=== PATIENT | female | born 1980 ===

== ENCOUNTER 2020-02-21 13:48 | Outpatient (REF) | payer OTHER, SELFPAY | END 2020-02-21 13:49 | disposition home or self-care (01) | LOC: HO.LAB 13:48 | PROVIDERS: PCP Internal Medicine; Visit Provider Internal Medicine | DX: Z20.828 Contact with and (suspected) exposure to other viral communicable diseases (principal) | CPT/HCPCS: C9803; U0003 ==

== ENCOUNTER 2022-09-10 07:46 | Outpatient (REF) | payer OTHER, SELFPAY ==
--- NOTE | ~2022-09-10 | XR_ITS ---
EXAM: XR KNEE, RIGHT XR KNEES, BILATERAL STANDING XR KNEE, LEFT CLINICAL INDICATION: Bilateral knee pain. COMPARISON: 06/01/2017 left knee, 11/05/2013. TECHNIQUE: AP and lateral views of the knees. Lateral and sunrise views of bilateral knees. FINDINGS: Right Knee: Moderate joint effusion. Progression of degenerative changes with moderate medial joint space narrowing and medial marginal osteophytes. Tiny lateral and posterior patellar osteophytes. Small ossicle at the posterior-superior, lateral aspect of the patella was not visualized on the prior exam. Left Knee: Joint effusion. Progression of mild degenerative changes with tiny tricompartmental osteophytes and mild medial joint space narrowing. Multiple soft tissue calcifications, most notable lateral to the knee joint and medial to the medial femoral condyle were not previously identified. XR/XR knee RT 2V IMPRESSION: 1. Progression of ryhmmnui-ls-xsdxkt degenerative changes right knee as detailed above. 2. Progression of mild degenerative changes left knee. 3. Bilateral soft tissue calcifications as detailed above, not previously visualized.
--- NOTE | ~2022-09-10 | XR_ITS ---
EXAM: XR KNEE, RIGHT XR KNEES, BILATERAL STANDING XR KNEE, LEFT CLINICAL INDICATION: Bilateral knee pain. COMPARISON: 06/01/2017 left knee, 11/05/2013. TECHNIQUE: AP and lateral views of the knees. Lateral and sunrise views of bilateral knees. FINDINGS: Right Knee: Moderate joint effusion. Progression of degenerative changes with moderate medial joint space narrowing and medial marginal osteophytes. Tiny lateral and posterior patellar osteophytes. Small ossicle at the posterior-superior, lateral aspect of the patella was not visualized on the prior exam. Left Knee: Joint effusion. Progression of mild degenerative changes with tiny tricompartmental osteophytes and mild medial joint space narrowing. Multiple soft tissue calcifications, most notable lateral to the knee joint and medial to the medial femoral condyle were not previously identified. XR/XR knee standing BI IMPRESSION: 1. Progression of wlysrnrp-jp-amqxfc degenerative changes right knee as detailed above. 2. Progression of mild degenerative changes left knee. 3. Bilateral soft tissue calcifications as detailed above, not previously visualized.
--- NOTE | ~2022-09-10 | XR_ITS ---
EXAM: XR KNEE, RIGHT XR KNEES, BILATERAL STANDING XR KNEE, LEFT CLINICAL INDICATION: Bilateral knee pain. COMPARISON: 06/01/2017 left knee, 11/05/2013. TECHNIQUE: AP and lateral views of the knees. Lateral and sunrise views of bilateral knees. FINDINGS: Right Knee: Moderate joint effusion. Progression of degenerative changes with moderate medial joint space narrowing and medial marginal osteophytes. Tiny lateral and posterior patellar osteophytes. Small ossicle at the posterior-superior, lateral aspect of the patella was not visualized on the prior exam. Left Knee: Joint effusion. Progression of mild degenerative changes with tiny tricompartmental osteophytes and mild medial joint space narrowing. Multiple soft tissue calcifications, most notable lateral to the knee joint and medial to the medial femoral condyle were not previously identified. XR/XR knee LT 2V IMPRESSION: 1. Progression of vqwxdhtf-ov-lmdyfi degenerative changes right knee as detailed above. 2. Progression of mild degenerative changes left knee. 3. Bilateral soft tissue calcifications as detailed above, not previously visualized.
== END 2022-09-10 07:47 | disposition home or self-care (01) ==
LOC: HO.HOSX 07:46
PROVIDERS: Visit Provider Physician Assistant
DX: M17.0 Bilateral primary osteoarthritis of knee (principal)
CPT/HCPCS: 73560; 73565; 99202

== ENCOUNTER 2022-10-25 08:14 | Outpatient (AMB) | payer OTHER, SELFPAY ==
[2022-10-25 08:26] VITALS: BMI 39.6
--- NOTE | 2022-10-25 08:26 | A.OFFVIS_ITS ---
Intake Vital Signs 10/25/22 08:26 Height 4 ft 11 in Weight 196 lb BMI 39.6 Intake Visit Reasons: OV - B/L Euflexxa Gel Injections #1 Intake Note: Sanjuana 41 yr old female presents today for bilateral knee gel injection. (euflexxa) Allergies Penicillins Allergy (Mild, Verified 10/25/22 08:32) RASH penicillin V Allergy (Unknown, Verified 10/25/22 08:32) rash HPI OV - B/L Euflexxa Gel Injections #1 HPI Details 41-year-old female who returns to the office today for bilateral Euflexxa gel injection #1. 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 Cognitive needs: Yes Hearing needs: No Vision needs: No Review of Systems Const All systems reviewed & are unremarkable except as noted in HPI and below Physical Exam Vital Signs: BMI result Body Mass Index 39.6 Const General: cooperative, healthy appearing, comfortable, no acute distress, well developed and alert Orientation/consciousness: patient oriented x3 HEENT Head: Yes normal to inspection, Yes normocephalic and Yes atraumatic Eyes General: appearance normal, both eyes and all related structures Resp Effort & Inspection: normal respiratory effort and able to speak in complete sentences Cardio Rate: regular rate Peripheral pulses: Peripheral pulses 2+ throughout GI Palpation (GI): Soft to palpation Skin Lesions: no lesions Rashes: no rashes Neuro General: patient oriented x3 Extrem Other: Bilateral knee skin intact, no erythema or joint effusion. Tenderness along the medial and lateral joint line. Full ROM with crepitus. Negative Vanita?s. No ligamentous laxity. NVI. Office Procedures Joint Injection/Drain Joint Injection/Drain Details: Hyaluronate Sodium [Euflexxa] ? 20 mg INTRAARTIC .STK-MED ONE Primary Site: right knee Secondary Site: left knee Prep: site was prepped using aseptic technique, ethochloride spray was applied and injection warnings given Injected: in the joint Approach Used: anterolateral Procedure: The patient tolerated the procedure well Coding 84569 - Glenohumeral/Tronchanteric Bursa/Intraarticular Procedure code (CPT) selection complete Results Reviewed Results Reviewed: 10/25/22 08:24 Hyaluronate Sodium [Euflexxa] 20 mg INTRAARTIC .STK-MED ONE Assessment & Plan Assessment & Plan (1) Osteoarthritis of knees, bilateral: Code(s): M17.0 - Bilateral primary osteoarthritis of knee Plan We discussed options today which include Euflexxa gel injection. They did consent to move forward with the bilateral knees Euflexxa gel injection #1, which was tolerated well. I recommended rest, ice and elevation and OTC anti-inflammatories PRN for discomfort. If symptoms persist or worsens, patient will contact the office, otherwise she will return in 1 week for Euflexxa gel injection #2. Patient Instructions: Scribed for Analy Stevenson PA-C, by Derek Curiel medical claims examiner, on 10/25/2022 at 8:30 AM EST. I, Analy Stevenson PA-C, have personally reviewed and agree with the information entered by the scribe. Coding Level of Care Code Procedure Only Diagnoses Osteoarthritis of knees, bilateral M17.0 CPT Codes Coding - Joint 7: 35588 - Glenohumeral/Tronchanteric Bursa/Intraarticular ([id number])
== END 2022-10-25 08:57 | disposition home or self-care (01) ==
PROVIDERS: PCP Internal Medicine; Visit Provider Physician Assistant
DX: M17.0 Bilateral primary osteoarthritis of knee (principal)
CPT/HCPCS: 20610

== ENCOUNTER → 2022-10-25 08:14 | Outpatient (BNVA) | payer OTHER, SELFPAY | PROVIDERS: PCP Internal Medicine; Visit Provider Physician Assistant ==

== ENCOUNTER 2022-10-25 08:53 | Emergency (ER) | payer OTHER, SELFPAY ==
--- NOTE | ~2022-10-25 | XR_ITS ---
EXAMINATION: XR ANKLE, RIGHT CLINICAL INFORMATION: Right ankle pain status post fall. COMPARISON: None available. TECHNIQUE: AP, lateral, and mortise views of the right ankle. FINDINGS: The ankle joint and mortise are intact. There is no acute fracture or dislocation. The tarsal bones are normally aligned. There is a small plantar calcaneal spur. The soft tissues are unremarkable. XR/XR ankle RT min 3V IMPRESSION: 1. No acute fracture. 2. Small degenerative plantar calcaneal spur.
--- NOTE | ~2022-10-25 | XR_ITS ---
EXAMINATION: XR THORACIC SPINE CLINICAL INFORMATION: Back pain status post fall down stairs. COMPARISON: None available. TECHNIQUE: 3 views of the thoracic spine were obtained. FINDINGS: There is no fracture or bone destruction seen and the vertebral alignment is normal. There is no disc space narrowing. There is no abnormality of the paraspinal soft tissues. Surgical clips overlie the right upper quadrant of the abdomen. XR/XR thoracic spine 3V IMPRESSION: Unremarkable thoracic spine.
--- NOTE | ~2022-10-25 | CT_ITS ---
EXAMINATION: CT CERVICAL SPINE WITHOUT CONTRAST CLINICAL INFORMATION: Status post fall down stairs with neck pain. COMPARISON: None available. TECHNIQUE: Multiple axial images of the cervical spine were obtained without the demonstration of intravenous contrast. Coronal and sagittal reformatted images were obtained. This CT examination was performed using dose optimization techniques as appropriate, variously including the following: *Automated exposure control *Adjustment of mA and/or kV according to patient size (this includes techniques or standardized protocols for targeted exams where dose is matched to indication/reason for exam; i.e. extremities or head) *Use of iterative reconstruction technique DLP: 605.42 mGy-cm FINDINGS: There is mild reversal the normal cervical lordosis with normal spinal alignment. Mild degenerative disc disease is seen at C6-C7 with disc space narrowing and marginal osteophyte formation. Small posterior disc osteophyte complex at C4-C5 causing mild spinal canal narrowing. The neural foramina are patent. The facet joints are unremarkable. The odontoid process is intact. The spinous and transverse processes are intact. The cervical soft tissues are unremarkable. Mildly prominent cervical lymph nodes are seen bilaterally without pathologic enlargement. The cervical spine is unremarkable. CT/CT cervical spine wo IV con IMPRESSION: 1. Mild reversal the normal cervical lordosis may be secondary to positioning and/or muscle spasm. 2. Mild degenerative changes without acute abnormality. 3. Cervical lymph nodes are mildly enlarged without pathologic enlargement. These could be baseline for the patient or reactive. Correlate with physical exam and patient history.
--- NOTE | ~2022-10-25 | CT_ITS ---
EXAMINATION: CT HEAD WITHOUT CONTRAST CLINICAL INFORMATION: Head trauma, loss of consciousness, rule out intracranial abnormality. COMPARISON: Head CT scan dated 04/28/2016. TECHNIQUE: Contiguous axial imaging was performed from the skull base to vertex without intravenous administration of contrast. Coronal and sagittal reformatted images were obtained. This CT examination was performed using dose optimization techniques as appropriate, variously including the following: *Automated exposure control *Adjustment of mA and/or kV according to patient size (this includes techniques or standardized protocols for targeted exams where dose is matched to indication/reason for exam; i.e. extremities or head) *Use of iterative reconstruction technique DLP: 605.42 mGy-cm FINDINGS: The cortical sulci are normal. The lateral ventricles are symmetrical. The third and fourth ventricles are in their normal midline position. The basilar and prepontine cisterns are unremarkable. There is no acute intra or extracerebral abnormality. There is no mass effect or midline shift. Sections through the bony calvarium are unremarkable. The paranasal sinuses are clear. The bony orbits and orbital contents are unremarkable. CT/CT head/brain wo IV con IMPRESSION: No acute intracranial pathology.
--- NOTE | ~2022-10-25 | XR_ITS ---
EXAMINATION: XR FOOT, RIGHT CLINICAL INFORMATION: Right foot pain status post fall. COMPARISON: None available. TECHNIQUE: AP, lateral, and oblique views of the right foot. An indicator arrow points to the second digit as well as the calcaneus. FINDINGS: There is no acute fracture or dislocation. The joint spaces are unremarkable the tarsal bones are normally aligned. There is a small plantar calcaneal spur. The soft tissues are unremarkable. XR/XR foot RT min 3V IMPRESSION: 1. No acute fracture. 2. Small degenerative plantar calcaneal spur.
[2022-10-25 08:57] VITALS: BP 146/99; PULSE 92; RESP 16; TEMP 36.1; O2SAT 95; BMI 39.6
--- NOTE | 2022-10-25 09:09 | ED.FALL ---
HPI - Fall General Chief Complaint: Head Injury Stated Complaint: Fall 10/23/ foot inj Time Seen by Provider: 10/25/22 09:06 Source: patient, RN notes reviewed and old records reviewed Mode of arrival: ambulatory History of Present Illness HPI Narrative: 41-year-old female with past medical history of asthma, GERD, gastroparesis, presenting to the ED complaining of right ankle/foot, headache, neck and back pain s/p mechanical trip and fall down 5 stairs 3 days ago. Patient states she was walking up the stairs when tripped and fell backwards landing on head, + LOC. denies taking anticoagulation, instance was witness, denies any seizure-like activity, however does report urinary incontinence after incident, denies tongue biting. Denies vision loss, numbness/tingling, weakness, CP/SOB, abdominal pain MD complaint: fall Related Data Home Medications Medication Instructions Recorded Confirmed nebulizers 04/17/21 08/27/21 Previous Rx's Medication Instructions Recorded albuterol sulfate 2.5 mg/3 mL 2.5 mg (3 mL) inhalation Q4-6H PRN 04/17/21 (0.083 %) solution for nebulization bronchospasm #90 mL ondansetron HCl 4 mg tablet 4 mg PO Q6H #90 tabs 05/25/21 diclofenac sodium 1 % topical gel 2 g topical QID PRN pain #100 grams 08/27/21 (Arthritis Pain (diclofenac)) pantoprazole 40 mg tablet,delayed 40 mg PO DAILY 30 days #30 tabs 08/27/21 release (Protonix) cyclobenzaprine 5 mg tablet 5 mg PO TID PRN muscle spasm #20 10/16/21 tabs ibuprofen 600 mg tablet 600 mg PO Q8H PRN pain #30 tabs 10/16/21 celecoxib 200 mg capsule (Celebrex) 200 mg PO BID 30 days #60 caps 09/10/22 acetaminophen 500 mg tablet 500 mg PO Q6H PRN fever or pain 10/25/22 (Tylenol Extra Strength) #14 tabs cyclobenzaprine 5 mg tablet 5 mg PO Q8H PRN pain (scale score 10/25/22 7-10) 5 days #14 tabs lidocaine 5 % topical patch 1 patch topical DAILY PRN pain #30 10/25/22 (Lidoderm) ea naproxen 500 mg tablet 500 mg PO BID PRN pain 10 days #20 10/25/22 tabs Allergies Allergy/AdvReac Type Severity Reaction Status Date / Time Penicillins Allergy Mild RASH Verified 10/25/22 08:32 penicillin V Allergy Unknown rash Verified 10/25/22 08:32 Review of Systems Review of Systems: Constitutional: No Fever, No Chills, No Fatigue, No Malaise ENT/Mouth: No Ear Pain, No Nasal Congestion,No sore throat, No Rhinorrhea, No Swallowing Difficulty Eyes: No Eye Pain, No Swelling, No Redness, No Vision Changes Cardiovascular: No Chest Pain, No SOB, No Edema, No Palpitations Respiratory: No Cough, No Sputum, No Dyspnea Gastrointestinal: No Nausea, No Vomiting, No Abdominal pain Genitourinary: No irregular bleeding, No Dysuria, No Urinary Frequency, No Hematuria, + Urinary Incontinence, No retention, No Flank Pain Musculoskeletal: No joint pain, No Myalgias, No Joint Swelling Skin: + Skin Lesions, No rash Neuro: No Weakness, No Numbness, No Paresthesias, + Loss of Consciousness, No Dizziness, + Headache Yes all other systems are reviewed and are negative Constitutional: Constitutional: Reports as per HPI Neurologic: Denies Abnormal speech present [facility] Past Medical History Attestation statement: The following information was validated with the patient. 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 Cognitive needs: Yes Hearing needs: No Vision needs: No Physical Exam Vital Signs: Vital Signs: Last Vital Signs Temp 97.0 F 10/25/22 08:57 Pulse 76 10/25/22 10:19 Resp 18 10/25/22 10:19 BP 146/99 H 10/25/22 08:57 Pulse Ox 95 10/25/22 08:57 O2 Del Method Room Air 10/25/22 08:57 BMI result Body Mass Index 39.6 Const: General: cooperative, healthy appearing, no acute distress, alert and awake Orientation/consciousness: patient oriented x3 Limitations: no limitations HEENT: Head: Yes normal to inspection and Yes atraumatic Ears: hearing grossly normal bilaterally General nose exam: Normal external nose present Face and sinus: Yes abrasion (Healing abrasion noted to central forehead, no palpable step-off) Mouth: Normal oral and palatal mucosa present Throat: Yes posterior oropharynx normal, Yes tonsils normal, Yes uvula midline, No peritonsillar mass and No uvular edema Eyes: General: appearance normal, both eyes and all related structures Periorbital: periorbital findings normal Pupils: Equal, round and reactive pupils present EOM: EOMs intact bilaterally Neck: Other: No midline cervical spinous tenderness Neck: Yes normal visual inspection and Yes no meningeal signs Chest: Chest palpation & inspection: normal inspection of the chest, no crepitus and no tenderness Resp: Effort & Inspection: normal respiratory effort and no respiratory distress Auscultation: clear to auscultation bilaterally Cardio: Rate: regular rate Heart sounds: S1 normal heart sound present and S2 normal heart sound present GI: Inspection: Yes normal to inspection Palpation (GI): Soft to palpation, nontender, no guarding and not rigid : General: Yes no CVA tenderness Back/Spine/Pelvis: Other: No midline cervical/thoracic/lumbar spinous tenderness/step-off or deformity. + bilateral > left thoracic paraspinal/MSK tenderness to palpation. No ecchymosis/erythema or flail chest Back: no CVA tenderness Skin: Rashes: no rashes Wounds: no wounds Neuro: Other: Strength intact throughout. No saddle anesthesia. Sensation intact to light touch. Neurovascular intact distally General: patient oriented x3, gait normal, tone normal, moves all extremities, no meningeal signs, no focal motor deficits and CN's II-XI intact bilaterally Cranial nerves: Yes Equal, round and reactive pupils present Cognition (Neuro): normal cognition Speech: No Abnormal speech present Gait exam (Neuro): Normal gait present Motor exam (neuro): 5/5 motor strength present throughout and Pronator motor function not present Extrem: Other: Right lateral malleolus and proximal foot with mild swelling/faint ecchymosis and diffuse tenderness to palpation. Neurovascularly intact. No erythema/warmth. right knee nontender, FROM intact Course Course Course Narrative: XR thoracic spine 3V IMPRESSION: Unremarkable thoracic spine. XR ankle RT min 3V/XR foot RT min 3V IMPRESSION: 1.? No acute fracture. 2.? Small degenerative plantar calcaneal spur. 1159--CT head/brain wo IV con IMPRESSION: No acute intracranial pathology. CT cervical spine wo IV con IMPRESSION: 1.? Mild reversal the normal cervical lordosis may be secondary to positioning and/or muscle spasm. 2.? Mild degenerative changes without acute abnormality. 3.? Cervical lymph nodes are mildly enlarged without pathologic enlargement. These could be baseline for the patient or reactive. Correlate with physical exam and patient history. Results discussed with patient including worrisome signs and symptoms and strict return precautions, and when to return to the emergency department. They verbalized understanding and feel safe for discharge at this time. Medications Administered Discontinued Medications Generic Name Dose Route Start Last Admin Trade Name Freq PRN Reason Stop Dose Admin Albuterol/Ipratropium 3 ml 10/25/22 09:29 10/25/22 10:19 Albuterol/Iprat 2.5/0.5mg 3 Ml Ampul.Neb INHALE 10/25/22 09:30 3 ml ONCE ONE Administration Medical Decision Making Medical Decision Making [facility] Narrative: 41-year-old female with past medical history of asthma, GERD, gastroparesis, presenting to the ED complaining of right ankle/foot, headache, neck and back pain s/p mechanical trip and fall down 5 stairs 3 days ago. On exam vital signs stable, NAD, nontoxic appearing, no midline spinous tenderness through or red flag symptoms, abdomen soft/nontender. Healing abrasion noted to forehead. Right ankle/lateral foot with swelling/tenderness. Concern for concussion vs ankle/foot sprain/fracture vs MSK pain/strain and muscle spasming. Lower suspicion for ICH/subdural, cauda equina/cord compression, intrathoracic or intra-abdominal bleeding Plan: X-rays, head/C-spine CT, DuoNeb Please refer to course for remaining clinical decision making, interpretation of labs/imaging results, and discussions with consultants and/or family members. Differential Diagnosis Differential Diagnoses: The differential diagnosis associated with the presentation includes As above Admission/Observation Consideration of admission/observation: Escalation of care including admission/observation considered Lab Data MDM Lab Attestation statement: I reviewed the patient's lab results. Radiology Impression Discussion of test interpretation with radiology: I have reviewed the radiologist's reading. External Record Review External record reviewed: Inpatient record, Office record, Outpatient record, Prior outpatient labs, Prior outpatient radiology, Primary care record and Outside ED record Tests considered The following testing was considered but not selected: As above Prescription Management I considered prescription management with: Pain Medication Discharge Plan Discharge Clinical Impression: Head injury, Neck muscle spasm, Ankle sprain Patient Disposition: Home, Self-Care Instructions: Ankle Sprain (DC), Head Injury (ED), Muscle Spasm (ED) Additional Instructions: Your x-rays do not show any fractures. Your CT scan of her neck does show evidence of muscle spasming and some inflamed neck lymph nodes Your pain is likely musculoskeletal Flexeril is a muscle relaxer, take at night as it makes you drowsy, do not drive, drink alcohol, or operate machinery while taking it Naproxen as an anti-inflammatory / pain medication, take with food Lidoderm patches are numbing patches, apply to painful area In addition take Tylenol at home If symptoms persist or worsen, pain becomes unbearable, you developed urinary retention or incontinence, or weakness return to the ED Prescriptions: New acetaminophen [Tylenol Extra Strength] 500 mg tablet 500 mg PO Q6H PRN (Reason: fever or pain) Qty: 14 0RF lidocaine [Lidoderm] 5 % adhesive patch,medicated 1 patch topical DAILY MDD remove after 12 hours PRN (Reason: pain) Qty: 30 0RF Rx Instructions: leave on most painful area for up to 12 hrs naproxen 500 mg tablet 500 mg PO BID PRN (Reason: pain) 10 Days Qty: 20 0RF cyclobenzaprine 5 mg tablet 5 mg PO Q8H PRN (Reason: pain (scale score 7-10)) 5 Days Qty: 14 0RF No Action ondansetron HCl 4 mg tablet 4 mg PO Q6H Qty: 90 8RF cyclobenzaprine 5 mg tablet 5 mg PO TID PRN (Reason: muscle spasm) Qty: 20 0RF ibuprofen 600 mg tablet 600 mg PO Q8H PRN (Reason: pain) Qty: 30 0RF (DME) nebulizers Misc See Rx Instructions .Route Rx Instructions: to use daily albuterol sulfate 2.5 mg /3 mL (0.083 %) solution for nebulization 2.5 mg inhalation Q4-6H PRN (Reason: bronchospasm) Qty: 90 8RF pantoprazole [Protonix] 40 mg tablet,delayed release (DR/EC) 40 mg PO DAILY 30 Days Qty: 30 2RF diclofenac sodium [Arthritis Pain (diclofenac)] 1 % gel 2 g topical QID PRN (Reason: pain) Qty: 100 0RF Rx Instructions: apply to single elbow, wrist or hand; for hand includes palm/fingers/back of hand celecoxib [Celebrex] 200 mg capsule 200 mg PO BID 30 Days Qty: 60 3RF Referrals: Pilo Talamantes MD [Primary Care Provider] - 5 days Stand Alone Forms: Work/School Release Interventions: ED Discharge Assessment Last Done: 10/25/22 12:32 Discharge Date/Time: 10/25/22 12:34
[2022-10-25 10:19] VITALS: PULSE 76; RESP 18; O2SAT 95
[2022-10-25] MEDS: Albuterol/Iprat 2.5/0.5MG 3 ML AMPUL.NEB INHALE (10:19)
== END 2022-10-25 12:34 | disposition home or self-care (01) ==
PROVIDERS: Emergency Provider Emergency Medicine; PCP Internal Medicine
DX: S09.90XA Unspecified injury of head, initial encounter (principal); S93.401A Sprain of unspecified ligament of right ankle, initial encounter; W10.9XXA Fall (on) (from) unspecified stairs and steps, initial encounter; M62.838 Other muscle spasm; Y93.9 Activity, unspecified; Y92.9 Unspecified place or not applicable; Y99.9 Unspecified external cause status; Z79.899 Other long term (current) drug therapy
CPT/HCPCS: 20610; 70450; 72072; 72125; 73610; 73630; 94640; 99284; J7323

== ENCOUNTER 2022-11-01 08:17 | Outpatient (AMB) | payer OTHER, SELFPAY ==
[2022-11-01 08:23] VITALS: BMI 39.6
--- NOTE | 2022-11-01 08:23 | MHC.OFFVIS ---
Intake Vital Signs 11/01/22 08:23 Height 4 ft 11 in Weight 196 lb BMI 39.6 Intake Visit Reasons: OV - B/L Euflexxa Gel Injections #2 Intake Note: Sanjuana a 41 year old female who presents today for a bilateral knee Euflexxa gel injection #2. Allergies Penicillins Allergy (Mild, Verified 11/01/22 08:25) RASH penicillin V Allergy (Unknown, Verified 11/01/22 08:25) rash HPI OV - B/L Euflexxa Gel Injections #2 HPI Details 41-year-old female who returns to the office today for a follow-up of bilateral knee Euflexxa gel injection #2. 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 Cognitive needs: Yes Hearing needs: No Vision needs: No Review of Systems Const All systems reviewed & are unremarkable except as noted in HPI and below Physical Exam Vital Signs: BMI result Body Mass Index 39.6 Const General: cooperative, healthy appearing, comfortable, no acute distress, well developed and alert Orientation/consciousness: patient oriented x3 HEENT Head: Yes normal to inspection, Yes normocephalic and Yes atraumatic Eyes General: appearance normal, both eyes and all related structures Resp Effort & Inspection: normal respiratory effort and able to speak in complete sentences Cardio Rate: regular rate Peripheral pulses: Peripheral pulses 2+ throughout GI Palpation (GI): Soft to palpation Skin Lesions: no lesions Rashes: no rashes Neuro General: patient oriented x3 Extrem Other: Bilateral knee skin intact, no erythema or joint effusion. Tenderness along the medial and lateral joint line. Full ROM with crepitus. Negative Vanita?s. No ligamentous laxity. NVI. Office Procedures Joint Injection/Drain Joint Injection/Drain Details: Hyaluronate Sodium [Euflexxa] ? 20 mg INTRAARTIC .STK-MED ONE Primary Site: right knee Secondary Site: left knee Prep: site was prepped using aseptic technique, ethochloride spray was applied and injection warnings given Injected: in the joint Approach Used: anterolateral Procedure: The patient tolerated the procedure well Coding 35191 - Glenohumeral/Tronchanteric Bursa/Intraarticular Procedure code (CPT) selection complete Results Reviewed Results Reviewed: 11/01/22 08:30 Hyaluronate Sodium [Euflexxa] 20 mg INTRAARTIC .STK-MED ONE Assessment & Plan Assessment & Plan (1) Osteoarthritis of knees, bilateral: Code(s): M17.0 - Bilateral primary osteoarthritis of knee Plan We discussed options today which include Euflexxa gel injection. They did consent to move forward with the bilateral knee Euflexxa gel injection #2, which was tolerated well. I recommended rest, ice and elevation and OTC anti-inflammatories PRN for discomfort. If symptoms persist or worsens, patient will contact the office, otherwise she will see us back in 1 week for Euflexxa gel injection #3. Patient Instructions: Scribed for Analy Stevenson PA-C, by Derek Curiel director of medical education, on 11/01/2022 at 8:30 AM EST. IAnaly PA-C, have personally reviewed and agree with the information entered by the scribe. Coding Level of Care Code Procedure Only Diagnoses Osteoarthritis of knees, bilateral M17.0 CPT Codes Coding - Joint 7: 58431 - Glenohumeral/Tronchanteric Bursa/Intraarticular ([id number])
== END 2022-11-01 08:51 | disposition home or self-care (01) ==
PROVIDERS: PCP Internal Medicine; Visit Provider Physician Assistant
DX: M17.0 Bilateral primary osteoarthritis of knee (principal)
CPT/HCPCS: 20610

== ENCOUNTER → 2022-11-01 08:17 | Outpatient (BNVA) | payer OTHER, SELFPAY | PROVIDERS: PCP Internal Medicine; Visit Provider Physician Assistant | DX: M17.0 Bilateral primary osteoarthritis of knee (principal) | CPT/HCPCS: 20610; J7323 ==

== ENCOUNTER 2023-06-03 00:24 | Emergency (ER) | payer OTHER, SELFPAY ==
--- NOTE | ~2023-06-03 | XR_ITS ---
EXAMINATION: XR CHEST CLINICAL INFORMATION: Concern for aspiration. COMPARISON: 02/13/2018. TECHNIQUE: Frontal view of the chest was obtained. FINDINGS: No significant abnormality is noted involving the heart, lungs, mediastinum, bony thorax or soft tissues. XR/XR chest 1V IMPRESSION: Unremarkable examination.
[2023-06-03 00:33] VITALS: BP 124/79; PULSE 71; O2SAT 100
[2023-06-03 00:39] VITALS: BMI 33.9
[2023-06-03 00:42] VITALS: BP 123/71; PULSE 80; RESP 17; TEMP 36.7; O2SAT 100
--- NOTE | 2023-06-03 00:50 | MHC.EDTECH ---
PATIENT WAS BIBA ,PATIENT CLOTHING WAS WET AND SOILED WITH LOOSE STOOL ,CARE GIVEN AND PATIENT WAS CHANGE INTO GOWN ,WARM BLANKET GIVEN ,AND PATIENT RESTING .
--- NOTE | 2023-06-03 01:31 | ED.ALCOHOL ---
HPI - Alcohol General Chief Complaint: ETOH/Substance Use Stated Complaint: ETOH Time Seen by Provider: 06/03/23 00:34 Source: patient Mode of arrival: EMS History of Present Illness HPI narrative: 42 yo female with PMH of IBS, asthma, depression, GERD, states she was drinking ETOH last night didn't realize she drank as much as she did then vomited all over herself. Denies falling or hitting her head denies SI. She wants to take a shower. MD complaint: alcohol intoxication Last drink: Hours (ago) Chronic alcohol use: No Previous visits for alcohol intoxication: No Recent trauma: No Associated symptoms: nausea Treatments prior to arrival: none Related Data Home Medications Medication Instructions Recorded Confirmed nebulizers 04/17/21 08/27/21 Previous Rx's Medication Instructions Recorded albuterol sulfate 2.5 mg/3 mL 2.5 mg (3 mL) inhalation Q4-6H PRN 04/17/21 (0.083 %) solution for nebulization bronchospasm #90 mL ondansetron HCl 4 mg tablet 4 mg PO Q6H #90 tabs 05/25/21 pantoprazole 40 mg tablet,delayed 40 mg PO DAILY 30 days #30 tabs 08/27/21 release (Protonix) ibuprofen 600 mg tablet 600 mg PO Q8H PRN pain #30 tabs 10/16/21 acetaminophen 500 mg tablet 500 mg PO Q6H PRN fever or pain 10/25/22 (Tylenol Extra Strength) #14 tabs lidocaine 5 % topical patch 1 patch topical DAILY PRN pain #30 10/25/22 (Lidoderm) ea naproxen 500 mg tablet 500 mg PO BID PRN pain 10 days #20 10/25/22 tabs Allergies Allergy/AdvReac Type Severity Reaction Status Date / Time Penicillins Allergy Mild RASH Verified 11/01/22 08:25 penicillin V Allergy Unknown rash Verified 11/01/22 08:25 Review of Systems Review of Systems: Constitutional : No Fever, No Chills, No Fatigue ENT/Mouth : No sore throat, No Rhinorrhea Eyes: No Eye Pain, No Swelling, No Redness Cardiovascular : No Chest Pain, No SOB, No Dyspnea on Exertion Respiratory : No Cough, No Sputum Gastrointestinal : pos Nausea, pos Vomiting, No Diarrhea, No abdominal Pain Genitourinary : No Dysuria, No Urinary Frequency, No Hematuria, Musculoskeletal : No joint pain, No Myalgias, No Joint Swelling Skin : No Skin Lesions, No rash Neuro : No Weakness, No Numbness, No Dizziness, no Headache Psych : No Anxiety/Panic, No Depression All other systems reviewed and are negative [facility] Past Medical History Attestation statement: The following information was validated with the patient. 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 Oriented X3. No acute distress. ETOH odor Eyes: Pupils equal, round and reactive to light. ENT: Pharynx normal. atraumatic Neck: Normal inspection. Neck supple. CVS: Normal heart rate and rhythm. Pulses normal. Respiratory: No respiratory distress. Breath sounds normal. Abdomen: Soft and nontender. Skin: Skin warm and dry. Normal skin color. Normal skin turgor. Extremities: No lower extremity edema. No calf ttp very small scrape on L anterior taylor Neuro: Oriented X 3. No motor deficit. No sensory deficit. Course Course Course Narrative: physician observation started at 234am will observe until clinically sober and patient has safe discharge Reevaluation(s) Reevaluation #1: observation ended at 623 am awake and alert steady gait Medical Decision Making Medical Decision Making MDM Narrative: 42 yo female with PMH of IBS, asthma, depression, GERD, here with c/o vomiting after ETOH use she denies SI, headstrike at this time will offer zofran and obtain CXR for aspiration. She will be monitored until clinically sober. Differential Diagnosis Differential Diagnoses: The differential diagnosis associated with the presentation includes ETOH intoxication, aspiration, vomiting Admission/Observation Consideration of admission/observation: Escalation of care including admission/observation considered monitor until more clinically sober Independent Interpretation I performed an independent interpretation of an: Plain X-Ray Radiology Impression Discussion of test interpretation with radiology: I have reviewed the radiologist's reading. Independent Historian Clinical information obtained from an independent historian. History obtained from or confirmed by: EMS External Record Review External record reviewed: Inpatient record Medications Administered Discontinued Medications Generic Name Dose Route Start Last Admin Trade Name Freq PRN Reason Stop Dose Admin Ondansetron HCl 4 mg 06/03/23 01:16 06/03/23 01:42 Ondansetron Odt 4 Mg Tab.Rapdis TRANSLINGU 06/03/23 01:17 4 mg ONCE ONE Administration Discharge Plan Discharge Clinical Impression: Alcoholic intoxication Qualifiers: Complication of substance-induced condition: uncomplicated Qualified Code(s): F10.920 - Alcohol use, unspecified with intoxication, uncomplicated Vomiting Qualifiers: Vomiting type: unspecified Nausea presence: with nausea Qualified Code(s): R11.2 - Nausea with vomiting, unspecified Patient Disposition: Home, Self-Care Instructions: Alcohol Intoxication (ED), Acute Nausea and Vomiting (ED) Additional Instructions: stay hydrated return for any worsening symptoms, fevers, productive cough, confusion, or any other concerns. your xray was normal Prescriptions: No Action ondansetron HCl 4 mg tablet 4 mg PO Q6H Qty: 90 8RF ibuprofen 600 mg tablet 600 mg PO Q8H PRN (Reason: pain) Qty: 30 0RF acetaminophen [Tylenol Extra Strength] 500 mg tablet 500 mg PO Q6H PRN (Reason: fever or pain) Qty: 14 0RF lidocaine [Lidoderm] 5 % adhesive patch,medicated 1 patch topical DAILY MDD remove after 12 hours PRN (Reason: pain) Qty: 30 0RF Rx Instructions: leave on most painful area for up to 12 hrs naproxen 500 mg tablet 500 mg PO BID PRN (Reason: pain) 10 Days Qty: 20 0RF (DME) nebulizers Misc See Rx Instructions .Route Rx Instructions: to use daily albuterol sulfate 2.5 mg /3 mL (0.083 %) solution for nebulization 2.5 mg inhalation Q4-6H PRN (Reason: bronchospasm) Qty: 90 8RF pantoprazole [Protonix] 40 mg tablet,delayed release (DR/EC) 40 mg PO DAILY 30 Days Qty: 30 2RF Stand Alone Forms: Work/School Release
[2023-06-03] MEDS: Ondansetron ODT 4 MG TAB.RAPDIS TRANSLINGU (01:42)
[2023-06-03 02:29] VITALS: BP 134/89; PULSE 92; RESP 16; TEMP 36.6; O2SAT 96
[2023-06-03 05:08] VITALS: BP 120/66; PULSE 78; RESP 14; TEMP 36.5; O2SAT 99
--- NOTE | 2023-06-03 05:51 | PC.NURSE ---
attempted to call partner [employer] for ride [phone] with no success
--- NOTE | 2023-06-03 06:38 | PC.NURSE ---
dcf at bedside
[2023-06-03 07:44] VITALS: BP 124/81; PULSE 78; RESP 18; TEMP 37.1; O2SAT 100
== END 2023-06-03 07:47 | disposition home or self-care (01) ==
PROVIDERS: Emergency Provider Emergency Medicine
DX: F10.129 Alcohol abuse with intoxication, unspecified (principal); Y90.9 Presence of alcohol in blood, level not specified; R11.2 Nausea with vomiting, unspecified; J45.909 Unspecified asthma, uncomplicated
CPT/HCPCS: 71045; 99283; 99284

== ENCOUNTER 2023-09-28 12:40 | Outpatient (AMB) | payer OTHER, SELFPAY ==
--- NOTE | 2023-09-28 12:49 | A.OFFPC_ITS ---
Vital Signs 09/28/23 12:51 Height 5 ft 3 in Weight 193 lb 6 oz BMI 34.3 BP 122/76 Blood Pressure Location Lt brachial Position Sitting Pulse 103 H Pulse Source Pulse Oximeter Pulse Oximetry (%) 98 Oxygen Delivery Method Room Air Intake Visit Reasons: PE Intake Note: Patient is here today for a physical. 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 Accompanied by: Self / Same As Patient Allergies Penicillins Allergy (Mild, Verified 09/28/23 12:50) RASH penicillin V Allergy (Unknown, Verified 09/28/23 12:50) rash Medication List - Last Reconciled 09/29/23 by Pilo Talamantes MD acetaminophen (Tylenol Extra Strength) 500 mg PO Q6H PRN albuterol sulfate 2.5 mg (3 mL) inhalation Q4-6H PRN ibuprofen 600 mg PO Q8H PRN lidocaine 5% (Lidoderm) 1 patch topical DAILY PRN MDD remove after 12 hours naproxen 500 mg PO BID PRN 10 days nebulizers to use daily ondansetron HCl 4 mg PO Q6H pantoprazole (Protonix) 40 mg PO DAILY 30 days Tobacco use date assessed: 09/28/23 Dental Screening Dental Screen Date: 09/28/23 Did you have a dental visit in the last 12 months?: No Did you have a dental problem in the last 6 months where you did not have access to dental care?: No Was dental information given to patient?: No HPI PE HPI Details asthma stable [facility] Medical History Asthma Surgical History History of carpal tunnel surgery of right wrist History of cholecystectomy Social History Housing: Apartment Patient Tobacco Use Status: Never used Tobacco e-Cigarette/Vaping Use: Never Used Second Hand Smoke Exposure: No service: No Current occupational status: employed 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 1. Little interest or pleasure in doing things: several days 2. Feeling down, depressed, or hopeless: nearly every day 3. Trouble falling or staying asleep, or sleeping too much: nearly every day 4. Feeling tired or having little energy: several days 5. Poor appetite or overeating: nearly every day 6. Feeling bad about yourself - or that you are a failure or have let yourself or your family down: several days 7. Trouble concentrating on things, such as reading the newspaper or watching television: nearly every day 8. Moving or speaking so slowly that other people could have noticed. Or the opposite - being so fidgety or restless that you have been moving around a lot more than usual: not at all 9. Thoughts that you would be better off or of hurting yourself in some way: not at all Total score: 15 Depression Screening Interpretation: Positive Depression Screening Done: Yes 94202 - PHQ-9 Billing: Yes (known problem) Source: Developed by Drs. Ino Barajas, Mayra Cuello, Cyril Kilgore and colleagues, with an educational franklin from [employer]. Thrive Questionnaire Date Thrive assessed: 09/28/23 I am a: Patient What is your living situation today?: I have a steady place to live Within the past 12 months, did the food you bought not last and you didn't have the money to get more?: Never true Within the past 12 months, did you worry whether your food would run out before you got money to buy more?: Never true Do you have trouble paying for medicines?: No Do you have trouble getting transportation to medical appointments?: No Do you have trouble paying your heating and electricity bill?: No Do you have trouble taking care of your child, family member or friend?: No Do you have trouble with day-to-day activities such as bathing, preparing meals, shopping, managing finances, etc.?: No Are you currently unemployed and looking for a job?: No Are you interested in more education?: No Currently or been in a relationship where the following occur: No concerns reported THRIVE Score: 0 AUDIT C Alcohol Use Questionnaire (AUDIT-C) 1. How often do you have a drink containing alcohol?: Never 2. How many drinks containing alcohol do you have on a typical day when you are drinking?: 1 or 2 Total Score: 0 Score Reviewed/Action Taken: Yes DAVID-7 AMB Questionnaire DAVID-7 Date DAVID - 7 assessed: 09/28/23 Feeling nervous, anxious, or on edge: 3 = Nearly every day Not being able to stop or control worryin = Nearly every day Worrying too much about different things: 3 = Nearly every day Trouble relaxin = Nearly every day Being so restless that it is hard to sit still: 3 = Nearly every day Becoming easily annoyed or irritable: 1 = Several days Feeling afraid as if something awful might happen: 3 = Nearly every day Total DAVID-7 score (0-4 normal; 5-9 mild; 10-14 moderate; 15-21 severe): 19 Source: Developed by Drs. Ino Barajas, Mayra Cuello, Cyril Kilgore and colleagues, with an educational franklin from [employer]. DAVID-7 Assessment Billing DAVID-7 Assessment Tool: DAVID-7 Assessment 03104 (known problem) Review of Systems Const Denies chills, Denies fatigue, Denies headache(s) and Denies weight loss Eyes Denies change in vision, Denies diplopia and Denies eye pain ENT Denies vertigo, Denies dizziness, Denies headache(s) and Denies nasal discharge Card Denies chest pain, Denies rapid heart rate and Denies dyspnea on exertion Resp Denies chest congestion, Denies cough, Denies pain with cough and Denies dyspnea on exertion GI Denies abdominal pain, Denies hematochezia and Denies change in bowel habits Musc Denies myalgias, Denies arthralgias and Denies joint swelling Skin/Breast Denies lesions and Denies unusual bruising Neuro Denies vertigo, Denies dizziness, Denies headache(s) and Denies focal weakness Endo Denies fatigue Physical exam (Primary Care) Vital Signs: Last Vital Signs Pulse 103 H 09/28/23 12:51 BP 122/76 09/28/23 12:51 Pulse Ox 98 09/28/23 12:51 Oxygen Delivery Method Room Air 09/28/23 12:51 BMI result Body Mass Index 34.3 Tobacco/Smoking Status: Tobacco use Status Tobacco use date assessed 09/28/23 09/28/23 12:57 Patient Tobacco Use Status Never used Tobacco 09/28/23 12:57 e-Cigarette/Vaping Use Never Used 09/28/23 12:57 PHQ-9: PHQ-9 Score PHQ-9: Total score 15 09/28/23 12:57 Depression Screening Interpretation: Positive Thrive Assessment: Date of Thrive Assessment Date Thrive assessed 09/28/23 09/28/23 12:57 Currently or been in a relationship where the following occur: No concerns reported Const General: cooperative, healthy appearing and no acute distress Orientation/consciousness: oriented to person, oriented to place and oriented to time HENMT Head: Yes normal to inspection, Yes normocephalic and Yes atraumatic Mouth: Normal oral and palatal mucosa present and tongue normal Throat: Yes posterior oropharynx normal and Yes uvula midline Eyes General: appearance normal, both eyes and all related structures Neck Neck: Yes normal visual inspection, Yes full ROM and Yes no lymphadenopathy Thyroid: Thyroid normal Carotids: normal carotid upstroke Chest Chest palpation & inspection: normal inspection of the chest Resp Effort & Inspection: normal respiratory effort and able to speak in complete sentences Auscultation: clear to auscultation bilaterally Cardio Jugular venous distension: no JVD Palpation: normal PMI Rate: regular rate Rhythm: regular rhythm Heart sounds: S1 normal heart sound present and S2 normal heart sound present GI Inspection: Yes normal to inspection Palpation (GI): Soft to palpation and No hepatosplenomegaly present Auscultation: normal bowel sounds General: Yes no CVA tenderness Back/Spine/Pelvis Back: no CVA tenderness Skin General skin exam: no rashes or lesions noted Neuro General: oriented to person, oriented to place and oriented to time Extrem General: Yes normal to inspection and Yes full ROM Assessment and Plan Assessment & Plan (1) Physical exam: Code(s): Z00.00 - Encounter for general adult medical examination without abnormal findings Plan: stable; do labs (2) Depression: Code(s): F32.A - Depression, unspecified Plan: stable; same rx (3) Asthma: Code(s): J45.909 - Unspecified asthma, uncomplicated Plan: stable ;same rx Orders: Orders Complete Blood Count Auto Diff 09/28/23 Z13.0 - Encounter for screening for diseases of the blood and blood-forming organs and certain disorders involving the immune mechanism Lipid Panel 09/28/23 Z13.220 - Encounter for screening for lipoid disorders Thyroid Stimulating Hormone 09/28/23 Z13.29 - Encounter for screening for other suspected endocrine disorder Comprehensive [place]. Panel Fast 09/28/23 Z13.9 - Encounter for screening, unspecified Medications: Refilled albuterol sulfate 2.5 mg (3 mL) inhalation Q4-6H PRN 90 mL 8RF bronchospasm Coding Level of Care Code Est Pt Prev Care 40-64y(05552) Diagnoses Physical exam Z00.00 Depression F32.A Asthma J45.909 Additional Codes DAVID-7 Assessment Billing - DAVID-7 Assessment Tool: DAVID-7 Assessment 04943 ([id number])
[2023-09-28 12:51] VITALS: BP 122/76; PULSE 103; O2SAT 98; BMI 34.3
== END 2023-09-28 13:09 | disposition home or self-care (01) ==
PROVIDERS: PCP Internal Medicine; Visit Provider Internal Medicine
DX: Z00.00 Encounter for general adult medical examination without abnormal findings (principal); F32.A Depression, unspecified; J45.909 Unspecified asthma, uncomplicated
CPT/HCPCS: 99396

== ENCOUNTER 2023-10-26 11:08 | Outpatient (AMB) | payer OTHER, SELFPAY ==
--- NOTE | 2023-10-26 11:12 | A.OFFPC_ITS ---
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 Accompanied by: Self / Same As Patient Allergies Penicillins Allergy (Mild, Verified 10/26/23 11:18) RASH penicillin V Allergy (Unknown, Verified 10/26/23 11:18) rash Tobacco use date assessed: 09/28/23 Dental Screening Dental Screen Date: 09/28/23 HPI Discussion Heart Problems HPI Details atypical chest pain for a month [facility] Medical History Asthma Surgical History History of carpal tunnel surgery of right wrist History of cholecystectomy Social History Housing: Apartment Patient Tobacco Use Status: Never used Tobacco e-Cigarette/Vaping Use: Never Used Second Hand Smoke Exposure: No service: No Current occupational status: employed 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 Ino Barajas, Mayra Cuello, Cyril Kilgore and colleagues, with an educational franklin from [employer]. Review of Systems Const Denies chills, Denies headache(s) and Denies weight loss ENT Denies headache(s) Card Denies syncope, Denies irregular heart rhythm and Denies dyspnea Resp Denies chest congestion, Denies cough and Denies dyspnea GI Denies abdominal pain, Denies change in stool character, Denies nausea and Denies vomiting Musc Denies deformity and Denies joint swelling Neuro Denies syncope and Denies headache(s) Physical exam (Primary Care) Vital Signs: Last Vital Signs Pulse 80 10/26/23 11:17 BP 124/76 10/26/23 11:17 Pulse Ox 98 10/26/23 11:17 Oxygen Delivery Method Room Air 10/26/23 11:17 BMI result Body Mass Index 34.8 Tobacco/Smoking Status: Tobacco use Status Tobacco use date assessed 09/28/23 10/26/23 11:12 Patient Tobacco Use Status Never used Tobacco 10/26/23 11:12 e-Cigarette/Vaping Use Never Used 10/26/23 11:12 Thrive Assessment: Date of Thrive Assessment Date Thrive assessed 09/28/23 10/26/23 11:12 Const General: cooperative, comfortable, no acute distress and alert Neck Neck: Yes no lymphadenopathy Thyroid: Thyroid normal Resp Effort & Inspection: normal respiratory effort Auscultation: clear to auscultation bilaterally Percussion: percussion normal Cardio Jugular venous distension: no JVD Palpation: normal PMI Rate: regular rate Rhythm: regular rhythm Heart sounds: S1 normal heart sound present and S2 normal heart sound present GI Inspection: Yes normal to inspection Palpation (GI): No hepatosplenomegaly present Skin General skin exam: no rashes or lesions noted Extrem General: Yes no clubbing, cyanosis or edema Assessment and Plan Assessment & Plan (1) Chest pain: Code(s): R07.9 - Chest pain, unspecified Plan: labs and ekg Orders: Orders ECG 12 lead EKG 10/26/23 R07.9 - Chest pain, unspecified Referrals Gastroenterology Referral K21.9 - Gastro-esophageal reflux disease without esophagitis Coding Level of Care Code Est Pt Level 3 (98106) Diagnoses Chest pain R07.9
[2023-10-26 11:17] VITALS: BP 124/76; PULSE 80; O2SAT 98; BMI 34.8
== END 2023-10-26 11:46 | disposition home or self-care (01) ==
PROVIDERS: PCP Internal Medicine; Visit Provider Internal Medicine
DX: R07.9 Chest pain, unspecified (principal)
CPT/HCPCS: 99213

== ENCOUNTER 2023-11-02 09:49 | Outpatient (REF) | payer OTHER, SELFPAY ==
--- NOTE | ~2023-11-02 | XR_ITS ---
EXAMINATION: XR SHOULDER, LEFT CLINICAL INFORMATION: Pain in left shoulder COMPARISON: 06/01/2017 TECHNIQUE: Four views of the left shoulder. FINDINGS: Mild osteoarthritic changes of the acromioclavicular joint. Glenohumeral alignment is preserved. XR/XR shoulder LT min 2V IMPRESSION: Mild osteoarthritic changes of the acromioclavicular joint. Electronically signed by: Rosalie Beasley MD 11/29/2023 09:50 AM EDT
--- NOTE | 2023-11-02 09:55 | ECG_ITS ---
Test Reason : chest pain Blood Pressure : / mmHG Vent. Rate : 068 BPM Atrial Rate : 068 BPM P-R Int : 138 ms QRS Dur : 074 ms QT Int : 396 ms P-R-T Axes : 053 042 031 degrees QTc Int : 421 ms Normal sinus rhythm with sinus arrhythmia Normal ECG When compared with ECG of 11-JAN-2017 19:31, No significant change was found Referred By: Pilo Talamantes Electronically Signed By:KATHRIN WILKES
[2023-11-02 10:00] LABS: MANUAL DIFF FLAG NO
[2023-11-02 10:48] LABS: Basophils Absolute Auto 0.1 X10*3/uL (0.0-0.2); Basophils Percent Auto 0.7 % (0-2); Eosinophils Absolute Auto 0.2 X10*3/uL (0.0-0.4); Eosinophils Percent Auto 3.1 % (0-4); Hematocrit 39.8 % (37.0-47.0); Hemoglobin 12.2 g/dl (12.0-16.0); Imm Gran Abs Auto 0.03 X10*3/uL (0.00-0.03); Imm Gran Pct Auto 0.4 % (0.0-0.4); Lymphocytes Absolute Auto 2.1 X10*3/uL (1.2-4.9); Lymphocytes Percent Auto 27.8 % (20-40); Mean Corpuscular HGB Conc 30.7 g/dl (31.0-35.0); Mean Platelet Volume 9.3 fL (9.4-12.3); Monocytes Absolute Auto 0.8 X10*3/uL (0.1-1.2); Monocytes Percent Auto 10.3 % (2-11); Neutrophils Absolute Auto 4.3 x10*3/uL (2.0-8.3); Neutrophils Percent Auto 57.7 % (45-73); Platelet Count 401 X10*3/uL (160-400); Red Blood Count 5.31 X10*6/uL (4.20-5.50); Red Cell Distribution Width 15.9 % (11.0-16.0); White Blood Count 7.4 X10*3/uL (4.8-10.8)
[2023-11-02 11:32] LABS: Alanine Aminotransferase 12 U/L (0-31); Albumin Level 4.3 g/dL (3.5-5.0); Alkaline Phosphatase 71 U/L (39-117); Anion Gap 10 (12-20); Aspartate Amino Transferase 18 U/L (5-31); Bilirubin Total 0.4 mg/dL (0.0-1.0); Blood Urea Nitrogen 14 mg/dL (9-16); Calcium 8.9 mg/dL (8.4-10.2); Carbon Dioxide 27 mmol/L (22-29); Chloride 104 mmol/L (96-108); Cholesterol 145 mg/dL (<200); Estimated Glomerular Filt Rate > 60; Glucose Fasting 107 mg/dL (60-99); HDL Cholesterol 53 mg/dL (>40); LDL Cholesterol Calculated 83 mg/dL (<100); Potassium 4.2 mmol/L (3.3-5.1); Sodium 137 mmol/L (135-145); Total Protein 7.5 g/dL (6.5-8.0); Triglycerides 47 mg/dL (<150)
[2023-11-02 11:49] LABS: Thyroid Stimulating Hormone 1.46 uIU/mL (0.32-4.0)
== END 2023-11-02 09:50 | disposition home or self-care (01) ==
LOC: HO.LAB 09:49
PROVIDERS: Absent Provider Internal Medicine; PCP Internal Medicine; Visit Provider Physician Assistant
DX: Z13.0 Encounter for screening for diseases of the blood and blood-forming organs and certain disorders involving the immune mechanism (principal); Z13.220 Encounter for screening for lipoid disorders; Z13.29 Encounter for screening for other suspected endocrine disorder; Z13.9 Encounter for screening, unspecified; R07.9 Chest pain, unspecified; M25.512 Pain in left shoulder; M75.82 Other shoulder lesions, left shoulder; R20.0 Anesthesia of skin; R20.2 Paresthesia of skin
CPT/HCPCS: 36415; 73030; 80053; 80061; 84443; 85025; 93005; 99212

== ENCOUNTER → 2023-11-02 09:55 | Outpatient (BNV) | payer OTHER, SELFPAY | PROVIDERS: Absent Provider Internal Medicine; PCP Internal Medicine; Visit Provider Internal Medicine | DX: R07.9 Chest pain, unspecified (principal) | CPT/HCPCS: 93010 ==

== ENCOUNTER 2023-11-02 10:37 | Outpatient (AMB) | payer OTHER, SELFPAY ==
--- NOTE | 2023-11-02 10:41 | A.OFFVIS_ITS ---
Vital Signs 11/02/23 10:42 Height 5 ft 3 in Weight 196 lb BMI 34.7 Intake Visit Reasons: Newprob-Left shoulder pain/down the arm Intake Note: Sanjuana a 42 year old female who presents today for an evaluation of left shoulder pain. Patient reports her pain presented after she fell down the stairs about a year ago. Her pain has been getting worse, causing discomfort at night. Limited ROM. She has pain and numbness that radiates down her arm to her thumb. No other tx. Finds no relief with ibuprofen. Allergies Penicillins Allergy (Mild, Verified 11/02/23 10:42) RASH penicillin V Allergy (Unknown, Verified 11/02/23 10:42) rash Medication List - Last Reconciled 11/02/23 by Analy Stevenson PA-C acetaminophen (Tylenol Extra Strength) 500 mg PO Q6H PRN albuterol sulfate 2.5 mg (3 mL) inhalation Q4-6H PRN ibuprofen 600 mg PO Q8H PRN lidocaine 5% (Lidoderm) 1 patch topical DAILY PRN MDD remove after 12 hours naltrexone 50 mg PO DAILY naproxen 500 mg PO BID PRN 10 days nebulizers to use daily ondansetron HCl 4 mg PO Q6H HPI HPI Newprob-Left shoulder pain/down the arm: Details: 42-year-old female who presents to the office today for an evaluation of left shoulder pain. She reports her pain presented after fall down the stairs about a year ago. She states she has worsening pain and numbness in her left shoulder that radiates down to her arm. Her pain is aggravated at night. She has not had any treatment in the past. She finds no relief with ibuprofen. She also experiences pain, numbness and tingling in her left hand. 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 Tenderness over the bicipital groove and along the deltoid region of the shoulder. Forward flexion to 175, external rotation to 90, internal rotation to S1. 5/5 RTC strength. Negative Weber and cross body abduction. NVI. Left wrist: Normal to inspection.? Tenderness over the carpal canal.? Numbness and tingling over the median nerve distribution of the right hand.? Able to make a full fist and fully extend all fingers.? Positive Tinel's. Results Reviewed Results Reviewed: Xrays were obtained in the office today and personally reviewed by me of the left shoulder show type 2 acromion Assessment & Plan Assessment & Plan (1) Tendonitis of left rotator cuff: Code(s): M75.82 - Other shoulder lesions, left shoulder Category: Medical Plan For her left shoulder, we discussed options which include PT, NSAIDs and injections. The patient will defer on the injection today and proceed with PT and NSAIDs. If symptoms persist, she will contact me for an injection, otherwise, PRN. For her wrist, an EMG/nerve conduction study of BUE was ordered in the office today. Once complete, she will see me back to discuss the next step in her treatment. Orders: Orders XR shoulder LT min 2V Today M25.512 - Pain in left shoulder NE nerve conduction velocity Today R20.0 - Anesthesia of skin, R20.2 - Paresthesia of skin NE electromyogram (EMG) Today R20.0 - Anesthesia of skin, R20.2 - Paresthesia of skin PT Evaluation and Treatment Today M75.82 - Other shoulder lesions, left shoulder Patient Instructions: Scribed for Analy Stevenson PA-C, by Derek Curiel medical aides teacher, on 11/02/2023 at 9:45 AM EST.? I, Analy Stevenson PA-C, have personally reviewed and agree with the information entered by the scribe. Coding Level of Care Code Est Pt Level 3 (12251) Diagnoses Tendonitis of left rotator cuff M75.82
[2023-11-02 10:42] VITALS: BMI 34.7
== END 2023-11-02 12:38 | disposition home or self-care (01) ==
LOC: HO.HOS 10:37
PROVIDERS: PCP Internal Medicine; Visit Provider Physician Assistant
DX: M75.82 Other shoulder lesions, left shoulder (principal)
CPT/HCPCS: 99213

== ENCOUNTER 2023-12-07 12:57 | Outpatient (REF) | payer OTHER, SELFPAY ==
--- NOTE | 2023-12-07 13:00 | EMG_ITS ---
Chief complaint: Bilateral hand numbness affecting 1st to 3rd digits, left worse than right. History of right Carpal Tunnel Syndrome surgery more than 10 years ago. Numbness never fully resolved after surgery. Reason for referral: Evaluate for Carpal Tunnel Syndrome Referred by: Analy OSPINA Procedure done: Bilateral upper extremities NCS/EMG Precautions and/or limitations: None The limb temperature was monitored continuously and remained between 32-36 degrees C during the performance of the NCS. Nerve Conduction Studies Anti Sensory Summary Table ?Stim Site NR Onset (ms) Norm Onset (ms) Peak (ms) Norm Peak (ms) O-P Amp (?V) Norm O-P Amp Site1 Site2 Delta-0 (ms) Dist (cm) Kam (m/s) Norm Kam (m/s) Left Median Anti Sensory (2nd Digit) Wrist ? 3.4 4.7 <3.6 47.8 >10 Wrist 2nd Digit 3.4 14.0 41 Right Median Anti Sensory (2nd Digit) Wrist ? 2.6 3.3 <3.6 72.0 >10 Wrist 2nd Digit 2.6 14.0 54 Left Ulnar Anti Sensory (5th Digit) Wrist ? 2.0 2.8 <3.7 57.2 >15.0 Wrist 5th Digit 2.0 14.0 70 Right Ulnar Anti Sensory (5th Digit) Wrist ? 2.0 2.8 <3.7 47.2 >15.0 Wrist 5th Digit 2.0 14.0 70 Motor Summary Table ?Stim Site NR Onset (ms) Norm Onset (ms) O-P Amp (mV) Norm O-P Amp iAmp (mV) Amp (1st) (%) Site1 Site2 Delta-0 (ms) Dist (cm) Kam (m/s) Norm Kam (m/s) Left Median Motor (Abd Poll Brev) Wrist ? 5.5 <3.9 7.0 >4.5 8.5 100.0 Elbow Wrist 3.6 19.0 53 >45 Elbow ? 9.1 7.2 8.6 102.9 Right Median Motor (Abd Poll Brev) Wrist ? 3.8 <3.9 11.0 >4.5 12.6 100.0 Elbow Wrist 3.6 19.0 53 >45 Elbow ? 7.4 10.6 12.2 96.4 Left Ulnar Motor (Abd Dig Minimi) Wrist ? 1.9 <3.0 7.3 >5 9.1 100.0 B Elbow Wrist 3.6 19.0 53 >45 B Elbow ? 5.5 7.0 8.9 95.9 A Elbow B Elbow 1.7 10.0 59 >45 A Elbow ? 7.2 6.8 8.7 93.2 Right Ulnar Motor (Abd Dig Minimi) Wrist ? 2.3 <3.0 11.5 >5 13.9 100.0 B Elbow Wrist 3.2 19.0 59 >45 B Elbow ? 5.5 10.9 13.6 94.8 A Elbow B Elbow 1.0 10.0 100 >45 A Elbow ? 6.5 10.9 14.0 94.8 Comparison Summary Table ?Stim Site NR Peak (ms) Norm Peak (ms) P-T Amp (?V) Site1 Site2 Delta-P (ms) Norm Delta (ms) Right Median/Radial Dig I Comparison (Digit 1 - 10cm) Median ? 3.0 <2.9 85.9 Median Radial 0.7 Radial ? 2.3 <2.8 32.7 EMG ?Side Muscle Nerve Root Ins Act Fibs Psw Amp Dur Poly Recrt Int Pat Comment Right 1stDorInt Ulnar C8-T1 Nml Nml Nml Nml Nml 0 Nml Complete Right FlexCarRad Median C6-7 Nml Nml Nml Nml Nml 0 Nml Complete Right Biceps Musculocut C5-6 Nml Nml Nml Nml Nml 0 Nml Complete Right Triceps Radial C6-7-8 Nml Nml Nml Nml Nml 0 Nml Complete Right Deltoid Axillary C5-6 Nml Nml Nml Nml Nml 0 Nml Complete Left 1stDorInt Ulnar C8-T1 Nml Nml Nml Nml Nml 0 Nml Complete Left FlexCarRad Median C6-7 Nml Nml Nml Nml Nml 0 Nml Complete Left Biceps Musculocut C5-6 Nml Nml Nml Nml Nml 0 Nml Complete Left Triceps Radial C6-7-8 Nml Nml Nml Nml Nml 0 Nml Complete Left Deltoid Axillary C5-6 Nml Nml Nml Nml Nml 0 Nml Complete FINDINGS: Left median motor nerve showed prolonged distal latency, normal amplitude and normal conduction velocity. Left median sensory nerve showed prolonged peak latency. Significant interlatency difference between right median and radial sensory nerves. All other nerves tested were within normal. Concentric needle EMG was performed in selected muscles of the bilateral upper extremities. Study did not reveal signs of electric abnormalities as shown in the table above. IMPRESSION: 1. This is an abnormal study. 2. There is electrodiagnostic evidence for left moderate-severe median neuropathy at the wrist, consistent with carpal tunnel syndrome. 3. There is no electrodiagnostic evidence for ulnar neuropathy, brachial plexopathy, or cervical radiculopathy. CLINICAL COMMENT: Borderline findings on right side most likely remnant of past right Carpal Tunnel Syndrome/surgery.. Thank you for your kind referral. Coral Ha MD, GUERLINE Board Certified, [place] Board of Physical Medicine and Rehabilitation (ABPMR) Board Certified, [place] Board of Electrodiagnostic Medicine (ABEM) CODIN [phone] MTDD
== END 2023-12-07 12:58 | disposition home or self-care (01) ==
LOC: HO.NEURO 12:57
PROVIDERS: PCP Internal Medicine; Visit Provider Physician Assistant
DX: R20.0 Anesthesia of skin (principal); R20.2 Paresthesia of skin
CPT/HCPCS: 95886; 95911

== ENCOUNTER → 2023-12-07 13:00 | Outpatient (BNV) | payer OTHER, SELFPAY | PROVIDERS: PCP Internal Medicine; Visit Provider Physical Medicine & Rehabilitation | DX: G56.03 Carpal tunnel syndrome, bilateral upper limbs (principal); R20.2 Paresthesia of skin; R20.0 Anesthesia of skin | CPT/HCPCS: 95886; 95911 ==

== ENCOUNTER 2023-12-23 08:59 | Outpatient (AMB) | payer OTHER, SELFPAY ==
--- NOTE | 2023-12-23 09:01 | A.OFFVIS_ITS ---
Intake Visit Reasons: OV- review EMG/discuss surgical intervention Intake Note: Sanjuana is a 43 year old right hand dominant female who presents today for a follow up of her EMG ordered by Analy Stevenson of her left hand. EMG was done on 12/07/23. Pt states she is still getting numbness and tingling in her fingers an d it is waking her up at night. She states she also has bad cramping in her hands. Allergies Penicillins Allergy (Mild, Verified 12/23/23 09:02) RASH penicillin V Allergy (Unknown, Verified 12/23/23 09:02) rash HPI HPI OV- review EMG/discuss surgical intervention: Details: 43-year-old right hand dominant female who presents in the office today for a follow-up of left upper extremity pain and to review her EMG of left wrist. The patient was seen by ANAI Beckford on 11/02/23 when they discussed treatment options, including physical therapy, NSAIDs, and injection. The patient proceeded with PT and NSAIDs at that time. She was ordered an EMG of the left wrist. While in the office today, the patient reports she still experiences numbness and tingling in her left fingers, which is causing her to wake up at night. She also mentions experiencing bad cramping in her left upper extremity. 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 No ecchymosis, erythema, or edema. Able to perform full finger flexion, extension, abduction, adduction, finger cross, okay sign, and thumbs up without deficit. Able to make a closed fist. Positive Tinel?s over the carpal tunnel. Sensation intact. Capillary refill is brisk. Radial pulse intact. Assessment & Plan Assessment & Plan (1) Carpal tunnel syndrome of left wrist: Code(s): G56.02 - Carpal tunnel syndrome, left upper limb Category: Medical Plan Ms. Pozo is a 43-year-old right hand dominant female who presents in the office today for a follow-up of left upper extremity pain and to review her EMG of left wrist. The patient was seen by ANAI Beckford on 11/02/23 when they discussed treatment options, including physical therapy, NSAIDs, and injection. The patient proceeded with PT and NSAIDs at that time. She was ordered an EMG of the left wrist. While in the office today, the patient reports she still experiences numbness and tingling in her left fingers, which is causing her to wake up at night. She also mentions experiencing bad cramping in her left upper extremity. We discussed proceeding with a left carpal tunnel release. I discussed in detail the procedure and what to expect pre and post operatively. We discussed the risks, benefits and alternatives to the surgery and the rehabilitation course. The risks include infection, bleeding, nerve injury, ongoing pain, swelling, and stiffness, perioperative risk of injury to bones and soft tissues, and blood clots. With her understanding she has consented to move forward with left carpal tunnel release. Follow-up will be at the post operative appointment, or sooner if needed. EMG of the left hand/wrist, obtained on 12/07/23, revealed: 1. This is an abnormal study. 2. There is electrodiagnostic evidence for left moderate-severe median neuropathy at the wrist, consistent with carpal tunnel syndrome. 3. There is no electrodiagnostic evidence for ulnar neuropathy, brachial plexopathy, or cervical radiculopathy. Patient Instructions: Scribed by Marylin Fofana electromedical equipment repairer, for Laquita Christine PA-C on 12/23/23 at 9:26 am EST. Coding Level of Care Code Est Pt Level 4 (43197) Diagnoses Carpal tunnel syndrome of left wrist G56.02
== END 2023-12-23 09:34 | disposition home or self-care (01) ==
PROVIDERS: PCP Internal Medicine; Visit Provider Physician Assistant
DX: G56.02 Carpal tunnel syndrome, left upper limb (principal)
CPT/HCPCS: 99214

== ENCOUNTER → 2023-12-23 08:59 | Outpatient (BNVA) | payer OTHER, SELFPAY | PROVIDERS: PCP Internal Medicine | DX: G56.02 Carpal tunnel syndrome, left upper limb (principal) | CPT/HCPCS: 99212 ==

== ENCOUNTER 2024-01-10 14:00 | Outpatient (RCR) | payer OTHER, SELFPAY ==
--- NOTE | 2023-11-16 08:50 | MHC.PT.EP ---
[facility] [place] Office [place] Office [place] Office [address] [phone] F: [phone] F: [phone] F: [phone] F: [phone] Physical Therapy Plan of Care Date of Evaluation: 11/16/23 Date of Surgery: Diagnosis: L shoulder tendonitis Assessment: 42 y/o R-hand dominant female referred to PT with other shoulder lesions, left shoulder, tendonitis L RTC. S/s consistent with L shoulder dysfunction and overlapping cervical dysfunction resulting in pain and difficulty with reaching overhead, reaching behind back, sleeping on L side, lifting, and carrying. Examination shows decreased cervical AROM, decreased L shoulder AROM, full PROM, normal DTR's, intact sensation, pain, and decreased L shoulder strength. Frequency and Duration: The patient will be seen 2x/week for 5 weeks Short Term Goals: 3 weeks I with HEP Pt will be able to forward flexion L shoulder > 120* to faciliate reaching into cabinets Longterm Goals: 5 weeks I with HEP and self management of sx Pt will be able to reach into overhead cabinets with pain < 3/10 Pt will be able to carry grocery bag wtih proper mechanics and pain < 3/10 Treatment Plan: Modalities to reduce pain, spasms and effusion. Manual therapy to restore motion and function. Therapeutic exercise to improve strength and flexibility. Neuromuscular re-education for posture and balance. Therapeutic activities to return to functional activities of daily living. Electronically signed by: Yesica Lindquist PT Please sign and return to therapist. Thank you for your referral.
--- NOTE | 2024-01-10 14:19 | MHC.PT.DC ---
[facility] [place] Office [place] Office [place] Office [address] [phone] F: [phone] F: [phone] F: [phone] F: [phone] Physical Therapy Discharge Report Diagnosis: L shoulder tendonitis Date of Surgery: Date of Evaluation: 11/16/23 Date of Discharge: 01/10/24 Treatments to Date: 8 Cancellations to Date: 0 No Shows to Date: 0 Discharge Status: Achieved Goals Improved Function Independent with HEP Discharge Summary: Reviewed HEP and good technique noted. At this time, no further questions and pt is d/c secondary to meeting goals and I with HEP Electronically signed by: Yesica Lindquist PT Please sign and return to therapist. Thank you for your referral.
== END 2024-01-10 14:20 | disposition home or self-care (01) ==
LOC: HO.PT 14:00
PROVIDERS: PCP Internal Medicine; Visit Provider Physician Assistant
DX: M75.82 Other shoulder lesions, left shoulder (principal)
CPT/HCPCS: 97110; 97112; 97161

== ENCOUNTER 2024-01-23 08:21 | Outpatient (AMB) | payer OTHER, SELFPAY ==
--- NOTE | 2024-01-23 08:26 | A.OFFVIS_ITS ---
Vital Signs 01/23/24 08:36 Height 5 ft 3 in Weight 196 lb BMI 34.7 Intake Visit Reasons: OV - left shoulder tendonitis Intake Note: Sanjuana a 42 year old female who presents today for a follow up of left shoulder pain. Patient reports PT has not helped as she continues to have intermittent pain. States she has ongoing numbness at night. Allergies Penicillins Allergy (Mild, Verified 01/23/24 08:37) RASH penicillin V Allergy (Unknown, Verified 01/23/24 08:37) rash Medication List - Last Reconciled 01/23/24 by Analy Stevenson PA-C acetaminophen (Tylenol Extra Strength) 500 mg PO Q6H PRN albuterol sulfate 2.5 mg (3 mL) inhalation Q4-6H PRN ibuprofen 600 mg PO Q8H PRN lidocaine 5% (Lidoderm) 1 patch topical DAILY PRN MDD remove after 12 hours naltrexone 50 mg PO DAILY naproxen 500 mg PO BID PRN 10 days nebulizers to use daily ondansetron HCl 4 mg PO Q6H HPI HPI OV - left shoulder tendonitis: Details: 43-year-old female who returns to the office today for a follow-up of left shoulder pain.? She continues to have pain and numbness in her shoulder that radiates up to her elbow. Her pain is aggravated with lifting and at night. She also reports her shoulder feels heavy. She has been working on physical therapy with no relief. She has not had any injection in the past. ? She does not have a history of diabetes. 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 Tenderness over the bicipital groove and along the deltoid region of the shoulder. Forward flexion to 175, external rotation to 90, internal rotation to S1. 5/5 RTC strength. Negative Weber and cross body abduction. NVI. Office Procedures AMB Joint Injection/Aspiration Joint Injection/Aspiration Details: left trochanteric bursa Prep: site was prepped using aseptic technique, ethochloride spray was applied and injection warnings given Injected: 80 mg of, DepoMedrol, with 8 mL of and 1% plain lidocaine Procedure: The patient tolerated the procedure well and there was some relief with the local anesthesia Coding 04682 - Glenohumeral/Tronchanteric Bursa/Intraarticular Procedure code (CPT) selection complete Assessment & Plan Assessment & Plan (1) Tendonitis of left rotator cuff: Code(s): M75.82 - Other shoulder lesions, left shoulder Category: Medical Plan: We discussed options today, which include steroid injection. The patient did consent to move forward with the left shoulder injection, which was tolerated well. I recommended rest, ice, and elevation and OTC anti-inflammatories as needed for discomfort. She will continue working on her home exercises. If symptoms persist or worsens over the next 6-8 weeks, patient will contact the office, otherwise follow-up as needed.? Coding Level of Care Code Est Pt Level 3 (71292) Complex EM visit Add On G2211 Diagnoses Tendonitis of left rotator cuff M75.82 CPT Codes Coding - Joint 7: 01864 - Glenohumeral/Tronchanteric Bursa/Intraarticular ([id number])
[2024-01-23 08:36] VITALS: BMI 34.7
== END 2024-01-23 09:14 | disposition home or self-care (01) ==
LOC: HO.HOS 08:21
PROVIDERS: PCP Internal Medicine; Visit Provider Physician Assistant
DX: M75.82 Other shoulder lesions, left shoulder (principal)
CPT/HCPCS: 20610; 99213

== ENCOUNTER → 2024-01-23 08:21 | Outpatient (BNVA) | payer OTHER, SELFPAY | PROVIDERS: PCP Internal Medicine; Visit Provider Physician Assistant | DX: M75.82 Other shoulder lesions, left shoulder (principal); M25.512 Pain in left shoulder | CPT/HCPCS: 20610; 99212; J1010; J2003 ==

== ENCOUNTER 2024-02-23 06:42 | Day surgery (SDC) | payer OTHER, SELFPAY ==
[2024-02-23 06:50] VITALS: BP 131/83; PULSE 90; RESP 16; TEMP 36.6; O2SAT 96; BMI 39.6
--- NOTE | 2024-02-23 08:02 | MHC.SHP ---
Pre-Procedural Eval Section A - 24 Hr Update-Section A only Date of Service: 02/23/24 The patient is an INPATIENT: No Changes since office visit: No Cold of Flu in the past 2 weeks, No New Medical Problems, No Changes in Medication and No Patient answered all questions The patient has been examined within 24 hours of the surgical procedure. The History & Physical has been completed within 30 days and I have reviewed it.: Yes Section B - Complete if H&P > 30 days Chief Complaint: Carpal tunnel syndrome, left upper limb Allergies: Allergies Allergy/AdvReac Type Severity Reaction Status Date / Time penicillin V Allergy Mild rash Verified 02/23/24 06:49 Penicillins Allergy Mild RASH Verified 02/23/24 06:49 Plan Diagnosis/Plan: Unchanged I have reviewed the history and physical and performed a pertinent physical examination on my patient. No changes have occurred unless specified. Time Spent With Patient Time: Total time managing care of this patient today ____ minutes.
--- NOTE | 2024-02-23 08:03 | W.PM.OPN ---
Operative Note Operative Note Date of Service: 02/23/24 Narrative: Preop diagnosis: 1. Left Carpal tunnel syndrome Postop diagnosis: same Procedure: 1. Left Carpal tunnel release Surgeon: Mara Sousa MD Regulatory Compliance Engineer: Poncho OSPINA Anesthesia: local block using 1% lidocaine with epinephrine Findings: Thickened transverse carpal ligament. EBL: Less than 5 mL Specimens: None Complications: None Disposition: Brought to recovery room in stable condition Plan: Follow-up for 10-14 days for wound check and suture removal Indications: The patient is 43 years old, with left carpal tunnel syndrome that has been unresponsive to nonoperative management. The risks and benefits of operative treatment including but not limited to risk of damage to blood vessels, nerves, tendons, infection, persistent pain, persistent symptoms, or possible need for additional surgery were discussed with the patient and the patient wishes to proceed with surgery. Procedure: Once consent was obtained a local block was performed using a combination of 1% lidocaine with epinephrine. The patient was then brought back to the operating suite and placed on the operative table in supine position. The left upper extremity was prepped and draped in a standard surgical fashion. Once assured that we had a good block, a 2.0 cm longitudinal incision was made centered over the carpal tunnel. The incision was made through the skin to the subcutaneous tissues using a #15 blade. Dissection was made down to the level of the transverse carpal ligament with care being taken to protect the palmar cutaneous nerve. Once the transverse carpal ligament was clearly visualized, a longitudinal incision was made in the transverse carpal ligament 1st using a #15 blade, then using tenotomy scissors under direct visualization. Care was taken to look for and protect the motor branch of the median nerve when seen in this area. Once satisfied with our carpal tunnel release the wound was copiously irrigated with normal saline and hemostasis was obtained with a brief period of local pressure. The skin edges were reapproximated with some 5.0 nylon suture material and a sterile dressing was applied. The patient appears to have tolerated the procedure well and with no complications. All digits were well vascularized at the conclusion of the case.
[2024-02-23 08:38] VITALS: BP 118/52; PULSE 85; RESP 16; O2SAT 100
== END 2024-02-23 08:39 | disposition home or self-care (01) ==
PROVIDERS: PCP Internal Medicine; Visit Provider Orthopaedic Surgery
PROC: (CPT 64721; principal; 2024-02-23 07:30)
DX: G56.02 Carpal tunnel syndrome, left upper limb (principal); R20.0 Anesthesia of skin; R20.2 Paresthesia of skin; R25.2 Cramp and spasm; J45.909 Unspecified asthma, uncomplicated; Z88.0 Allergy status to penicillin; Z98.890 Other specified postprocedural states; Z90.49 Acquired absence of other specified parts of digestive tract
CPT/HCPCS: 64721; J0171; J2003

== ENCOUNTER → 2024-02-23 06:42 | Outpatient (BNV) | payer OTHER, SELFPAY | PROVIDERS: PCP Internal Medicine; Visit Provider Orthopaedic Surgery | DX: G56.02 Carpal tunnel syndrome, left upper limb (principal) | CPT/HCPCS: 64721 ==

== ENCOUNTER 2024-02-29 09:21 | Outpatient (AMB) | payer OTHER, SELFPAY ==
--- NOTE | 2024-02-29 09:22 | MHC.OFFVIS ---
Vital Signs 02/29/24 09:23 Height 5 ft 3 in Weight 206 lb 5.643 oz BMI 36.5 BP 128/66 Blood Pressure Location Rt brachial Position Sitting Pulse 88 Pulse Source Pulse Oximeter Pulse Oximetry (%) 98 Oxygen Delivery Method Room Air Intake Visit Reasons: GERD w/o esophagitis Intake Note: NEW PATIENT Sanjuana presents in office today for a scheduled initial assessment. Pt is considered a new pt as they have not been seen since 2020. Prior hx of colo/egd? [address] Nevarez. Previous June patient as of 2020. Meds and Allergies reviewed? Y Any significant concerns or questions? GERD sx. No other significant concerns. Pt is looking to resume their previous routine. Pharmacy verified? [facility] [employer] [facility] Required: No Allergies penicillin V Allergy (Mild, Verified 02/29/24 09:23) rash Penicillins Allergy (Mild, Verified 02/29/24 09:23) RASH HPI HPI GERD w/o esophagitis: Details: 43 years old female with past medical history of carpal tunnel syndrome of left wrist status post surgery, tendonitis of left rotator cuff, depression, irritable bowel with constipation and diarrhea, GERD, asthma, EDDIE is here today for initial consultation. Patient was previously seen by June Cameron with last visit in 2019. Patient had upper endoscopy that year with Dr. Nevarez. Patient was found to have erosive gastritis and duodenitis. She was told not to take any NSAIDs. Patient currently is not on any PPI or H2 keenan. Patient did take omeprazole and pantoprazole in the past and reports that it was helpful. Patient reports postprandial epigastric pain with abdominal bloating. Patient admits no bowel movements sometimes for 2-3 days. Patient reports occasional dyspepsia without dysphagia or odynophagia. Patient denies any melena, hematochezia, unintentional weight loss or ribbon like stools. Patient denies any family history of colorectal cancer. No history of sleep apnea. Patient has been taking significant amount of NSAIDs for pain control. Recently patient had surgery for carpal tunnel to her left wrist. Patient reports occasional nausea. 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 Cognitive needs: Yes (Cane) Hearing needs: No Vision needs: No Review of Systems Const Denies weight gain and Denies weight loss ENT Reports no additional complaints, Denies dysphagia and Denies odynophagia Card Reports no additional complaints Resp Reports no additional complaints GI Reports abdominal pain (Epigastric), Denies belching, Denies melena, Reports bloating, Denies change in bowel habits, Reports constipation, Denies dysphagia, Denies excessive flatus, Reports dyspepsia, Reports heartburn, Denies diarrhea, Denies loose stools, Denies nausea, Denies odynophagia and Denies vomiting Reports no additional complaints Musc Reports no additional complaints Neuro Reports no additional complaints Psych Reports no additional complaints Endo Reports no additional complaints Physical Exam Vital Signs: Last Vital Signs Pulse 88 02/29/24 09:23 BP 128/66 02/29/24 09:23 Pulse Ox 98 02/29/24 09:23 Oxygen Delivery Method Room Air 02/29/24 09:23 BMI result Body Mass Index 36.5 Const General: healthy appearing and no acute distress Nutritional Appearance: obese Orientation/consciousness: patient oriented x3 Resp Effort & Inspection: normal respiratory effort, able to speak in complete sentences, no tracheal deviation and symmetric chest movement Auscultation: clear to auscultation bilaterally Cardio Rate: regular rate GI Inspection: Yes normal to inspection, No distended and Yes obesity Palpation (GI): Soft to palpation, not firm, nontender and No hepatosplenomegaly present Auscultation: normal bowel sounds General: Yes no CVA tenderness Back/Spine/Pelvis Back: no CVA tenderness Skin General skin exam: elasticity normal, turgor normal and dry skin Neuro General: patient oriented x3 Psych Appearance: grossly normal Mental Status: mental status grossly normal Assessment & Plan Assessment & Plan (1) GERD (gastroesophageal reflux disease): Code(s): K21.9 - Gastro-esophageal reflux disease without esophagitis Category: Medical Qualifiers: Esophagitis presence: esophagitis presence not specified Qualified Code(s): K21.9 - Gastro-esophageal reflux disease without esophagitis (2) Postprandial epigastric pain: Code(s): R10.13 - Epigastric pain (3) Postprandial abdominal bloating: Code(s): R14.0 - Abdominal distension (gaseous) (4) Constipation: Code(s): K59.00 - Constipation, unspecified Qualifiers: Constipation type: slow transit constipation Qualified Code(s): K59.01 - Slow transit constipation (5) Screen for colon cancer: Code(s): Z12.11 - Encounter for screening for malignant neoplasm of colon Plan Will check for H pylori today and start her on PPI. Will treat empirically if positive. Patient will start omeprazole 20 mg daily and famotidine at bedtime. Avoid dietary triggers and late night snacking. Staying upright for minimum 3 hours after meals discussed with patient. Labs lipase, transglutaminase, vitamin-D, B12, folate. Patient will was encouraged to increase fluid intake and activity to promote better bowel motility. Dulcolax daily. Patient is due to go for colonoscopy she agrees to get it done. Patient most likely will be sent for upper endoscopy. Patient denies any family history of CRC. Patient has a history of sleep apnea Orders: Orders H Pylori Breath Test Today K21.9 - Gastro-esophageal reflux disease without esophagitis Lipase Today R10.9 - Unspecified abdominal pain Vitamin D 25-OH (D2 and D3) Today E55.9 - Vitamin D deficiency, unspecified Transglutaminase IgA Today R10.9 - Unspecified abdominal pain Vitamin B12 and Folate Today R19.7 - Diarrhea, unspecified Medications: New famotidine (Pepcid) 20 mg PO BEDTIME 30 tabs 3RF K21.9 - Gastro-esophageal reflux disease without esophagitis bisacodyl (Dulcolax (bisacodyl)) 10 mg (2 x 5 mg) PO BEDTIME 180 tabs 4RF omeprazole 20 mg PO DAILY 30 caps 2RF K21.9 - Gastro-esophageal reflux disease without esophagitis Discontinued lidocaine 5% (Lidoderm) leave on most painful area for up to 12 hrs Discontinued Reason: Patient no longer taking 1 patch topical DAILY PRN 30 ea 0RF pain MDD remove after 12 hours Coding Level of Care Code New Pt Level 4 (46661) Diagnoses Gastroesophageal reflux disease, unspecified whether esophagitis present K21.9 Esophagitis presence: esophagitis presence not specified Postprandial epigastric pain R10.13 Postprandial abdominal bloating R14.0 Slow transit constipation K59.01 Constipation type: slow transit constipation Screen for colon cancer Z12.11 Time Spent (min) 45 Comment 30 minutes spent with patient and additional 15 minutes spent reviewing her records
[2024-02-29 09:23] VITALS: BP 128/66; PULSE 88; O2SAT 98; BMI 36.5
== END 2024-02-29 10:26 | disposition home or self-care (01) ==
PROVIDERS: PCP Internal Medicine; Visit Provider Nurse Practitioner Family
DX: K21.9 Gastro-esophageal reflux disease without esophagitis (principal); R10.13 Epigastric pain; R14.0 Abdominal distension (gaseous); K59.01 Slow transit constipation; Z12.11 Encounter for screening for malignant neoplasm of colon
CPT/HCPCS: 99204

== ENCOUNTER → 2024-02-29 09:21 | Outpatient (BNVA) | payer OTHER, SELFPAY | PROVIDERS: PCP Internal Medicine; Visit Provider Nurse Practitioner Family | DX: K21.00 Gastro-esophageal reflux disease with esophagitis, without bleeding (principal); K58.1 Irritable bowel syndrome with constipation; K58.0 Irritable bowel syndrome with diarrhea; K59.01 Slow transit constipation; R10.13 Epigastric pain; R14.0 Abdominal distension (gaseous); E55.9 Vitamin D deficiency, unspecified | CPT/HCPCS: 99202 ==

== ENCOUNTER 2024-02-29 16:44 | Outpatient (REF) | payer OTHER, SELFPAY ==
[2024-03-01 10:54] LABS: H Pylori Breath Test Negative (Negative)
== END 2024-02-29 16:45 | disposition home or self-care (01) ==
LOC: HO.LNP 16:44
PROVIDERS: Visit Provider Nurse Practitioner Family
DX: K21.9 Gastro-esophageal reflux disease without esophagitis (principal)
CPT/HCPCS: 83013

== ENCOUNTER 2024-03-07 09:47 | Outpatient (AMB) | payer OTHER, SELFPAY ==
--- NOTE | 2024-03-07 09:58 | A.OFFVIS_ITS ---
Vital Signs 03/07/24 10:10 Height 5 ft 3 in Weight 206 lb BMI 36.5 Handedness Right Intake Visit Reasons: PO-Lt CTR 02/23/24 Intake Note: Sanjuana is a 43 year old right hand dominant female who presents today for a post operative visit s/p left carpal tunnel release DOS: 02/23/24. Patient reports she still has numbness and tingling during the night time. Expresses pain on the dorsal and volar aspect of her left wrist. She states she accidentally grabbed something that was heavy so she is unsure if she hurt her hand. Denies any discharge from incision site. Sutures removed and steri stips applied in office. Allergies penicillin V Allergy (Mild, Verified 03/07/24 10:10) rash Penicillins Allergy (Mild, Verified 03/07/24 10:10) RASH HPI HPI PO-Lt CTR 02/23/24: Details: Patient is a 43-year-old female who presents for postoperative evaluation status post left carpal tunnel release, DOS 02/23/2024. Today, the patient reports that she is still experiencing numbness and tingling in the left hand, and then she is experiencing pain at and around the level of the incision site. Patient expresses no concerns about discharge, redness, or other signs and symptoms of infection. Patient reports discomfort in the left hand when she attempts to make a closed fist. No other acute complaints or concerns at this time. [facility] Medical History Gastroparesis EDDIE (obstructive sleep apnea) Asthma Surgical History History of carpal tunnel surgery of right wrist History of cholecystectomy Social History Housing: Apartment Patient Tobacco Use Status: Never used Tobacco e-Cigarette/Vaping Use: Never Used Second Hand Smoke Exposure: No service: No Current occupational status: employed Current occupation: [employer] Cognitive needs: Yes (Cane) Hearing needs: No Vision needs: No Review of Systems Const All systems reviewed & are unremarkable except as noted in HPI and below Physical Exam Vital Signs: BMI result Body Mass Index 36.5 Extrem Other: Patient is alert, oriented, and in no acute distress. Neuro: Diminished sensation in the median nerve distribution of the left hand in the office today Vascular: Cap refill brisk Pain: Patient reports tenderness to palpation about the incision site on the volar left wrist Reports pain with very light palpation across the incision ROM: Patient is able to make closed fist and extend all digits of the left hand fully, but reports some discomfort when doing so Skin: No lacerations or abrasions. General: No ecchymosis, erythema, or evidence of infection. Psych: Appears grossly normal Affect normal Attitude cooperative Assessment & Plan Assessment & Plan (1) Carpal tunnel syndrome of left wrist: Code(s): G56.02 - Carpal tunnel syndrome, left upper limb Category: Medical Plan 1. Left carpal tunnel syndrome status post carpal tunnel release DOS 02/23/2024 Patient appears to be recovering fairly well postoperatively Patient is educated about the typical recovery course Patient was referred to occupational therapy for range of motion and stren gthening of the left hand, as well as for treatment of pillar pain and for desensitization of the incision site over the left volar wrist. Patient was amenable to this plan Patient will follow-up as needed with any acute concerns Orders: Orders OT Evaluation and Treatment Today G56.02 - Carpal tunnel syndrome, left upper limb Coding Level of Care Code Global (17303) Diagnoses Carpal tunnel syndrome of left wrist G56.02
[2024-03-07 10:10] VITALS: BMI 36.5
== END 2024-03-07 10:25 | disposition home or self-care (01) ==
PROVIDERS: PCP Internal Medicine
DX: G56.02 Carpal tunnel syndrome, left upper limb (principal)
CPT/HCPCS: 99024

== ENCOUNTER → 2024-03-07 09:47 | Outpatient (BNVA) | payer OTHER, SELFPAY | PROVIDERS: PCP Internal Medicine | DX: Z48.02 Encounter for removal of sutures (principal); G56.02 Carpal tunnel syndrome, left upper limb; R20.0 Anesthesia of skin; R20.2 Paresthesia of skin | CPT/HCPCS: 99212 ==

== ENCOUNTER 2024-10-02 09:53 | Outpatient (AMB) | payer OTHER, SELFPAY ==
[2024-10-02 10:18] VITALS: BMI 34.7
--- NOTE | 2024-10-02 10:18 | A.OFFPC_ITS ---
Vital Signs 10/02/24 10:18 Height 5 ft 3 in Weight 196 lb BMI 34.7 Intake Visit Reasons: PERFECTO Dr Talamantes Pan Washer Hand Required: No Accompanied by: Self / Same As Patient Allergies penicillin V Allergy (Mild, Verified 10/02/24 10:28) rash Penicillins Allergy (Mild, Verified 10/02/24 10:28) RASH Medication List - Last Reconciled 10/02/24 by Mariya Perea PA-C albuterol sulfate 2.5 mg (3 mL) inhalation Q4-6H PRN famotidine (Pepcid) 20 mg PO BEDTIME nebulizers to use daily omeprazole 20 mg PO DAILY ondansetron HCl 4 mg PO Q6H Tobacco use date assessed: 10/02/24 Dental Screening Dental Screen Date: 10/02/24 Did you have a dental visit in the last 12 months?: No Did you have a dental problem in the last 6 months where you did not have access to dental care?: No Was dental information given to patient?: No HPI PERFECTO Dr Talamantes HPI Details 43 year old female with past medical his tory with asthma, GERD, IBS, depression last seen by Dr. Talamantes coming in for PERFECTO. Presenting for management of multiple chronic conditions and medication refills. Reports frequent allergy attacks, uses Ventolin and albuterol inhalers or Montelukast, but has not had an inhaler recently, leading to exacerbations. Off montelukast and albuterol for some time, leading to exacerbations. Reports wheezing and shortness of breath, particularly when allergies are active. Underwent a sleep study in 2019, which showed no evidence of sleep apnea. Considering retesting. Positive depression screening, currently seeing a counselor at [facility] Insurance issues affecting counseling sessions. Reports irregular periods and symptoms consistent with menopause. Hormone levels not tested due to variability in menstrual cycles. Experiences recurrent cysts, particularly in high-contact areas. Advised on hygiene and preventative measures. History of head injury with intermittent swelling of the head and face and headaches, accompanied by vision changes. CT scan ordered to investigate further. [facility] Medical History Seasonal allergies Gastroparesis EDDIE (obstructive sleep apnea) Asthma Surgical History History of carpal tunnel surgery of right wrist History of cholecystectomy Social History Housing: Apartment Patient Tobacco Use Status: Never used Tobacco e-Cigarette/Vaping Use: Never Used Second Hand Smoke Exposure: No service: No Current occupational status: employed Current occupation: [employer] Cognitive needs: Yes (Cane) Hearing needs: No Vision needs: No Questionnaire PHQ-9 Over the last 2 weeks, how often have you been bothered by any of the following problems? 1. Little interest or pleasure in doing things: several days 2. Feeling down, depressed, or hopeless: several days 3. Trouble falling or staying asleep, or sleeping too much: several days 4. Feeling tired or having little energy: several days 5. Poor appetite or overeating: several days 6. Feeling bad about yourself - or that you are a failure or have let yourself or your family down: not at all 7. Trouble concentrating on things, such as reading the newspaper or watching television: several days 8. Moving or speaking so slowly that other people could have noticed. Or the opposite - being so fidgety or restless that you have been moving around a lot more than usual: not at all 9. Thoughts that you would be better off or of hurting yourself in some way: not at all Total score: 6 Depression Screening Interpretation: Positive Depression Screening Follow-up: Existing condition and In treatment Depression Screening Done: Yes 79555 - PHQ-9 Billing: Yes Source: Developed by Drs. Ino Barajas, Mayra Cuello, Cyril Kilgore and colleagues, with an educational franklin from [employer]. Thrive Questionnaire Date Thrive assessed: 10/02/24 I am a: Patient What is your living situation today?: I have a steady place to live Within the past 12 months, did the food you bought not last and you didn't have the money to get more?: Never true Within the past 12 months, did you worry whether your food would run out before you got money to buy more?: Sometimes True Do you have trouble paying for medicines?: No Do you have trouble getting transportation to medical appointments?: No Do you have trouble paying your heating and electricity bill?: Yes Do you have trouble taking care of your child, family member or friend?: No Do you have trouble with day-to-day activities such as bathing, preparing meals, shopping, managing finances, etc.?: No Are you currently unemployed and looking for a job?: Yes Are you interested in more education?: No Please select the resources that you would like help with: None Currently or been in a relationship where the following occur: No concerns reported THRIVE Score: 2 AUDIT C Alcohol Use Questionnaire (AUDIT-C) 1. How often do you have a drink containing alcohol?: Monthly or less 2. How many drinks containing alcohol do you have on a typical day when you are drinking?: 1 or 2 3. How often do you have six or more drinks on one occasion?: Never Total Score: 1 DAVID-7 AMB Questionnaire DAVID-7 Date DAVID - 7 assessed: 10/02/24 Feeling nervous, anxious, or on edge: 1 = Several days Not being able to stop or control worryin = Several days Worrying too much about different things: 2 = More than half the days Trouble relaxin = Several days Being so restless that it is hard to sit still: 1 = Several days Becoming easily annoyed or irritable: 1 = Several days Feeling afraid as if something awful might happen: 1 = Several days Total DAVID-7 score (0-4 normal; 5-9 mild; 10-14 moderate; 15-21 severe): 8 Source: Developed by Drs. Ino Barajas, Mayra Cuello, Cyril Kilgore and colleagues, with an educational franklin from [employer]. DAVID-7 Assessment Billing DAVID-7 Assessment Tool: DAVID-7 Assessment 32075 Review of Systems Const Denies body aches, Denies chills, Denies fever(s), Reports headache(s) (With head swelling only) and Denies poor appetite Eyes Reports no additional complaints ENT Denies dysphagia, Denies dizziness, Reports headache(s) (With head swelling only) and Denies odynophagia Card Denies chest pain, Denies syncope, Denies edema, Denies irregular heart rhythm, Denies lightheadedness and Denies dyspnea Resp Denies cough and Denies dyspnea GI Denies abdominal pain, Denies constipation, Denies dysphagia, Denies diarrhea, Denies nausea, Denies odynophagia and Denies vomiting Reports no additional complaints Musc Reports no additional complaints and Denies abnormal gait Skin/Breast Reports system reviewed and no additional complaints, except as documented Neuro Denies abnormal gait, Denies dizziness, Denies syncope and Reports headache(s) (With head swelling only) Psych Reports no additional complaints Physical exam (Primary Care) BMI result Body Mass Index 34.7 Tobacco/Smoking Status: Tobacco use Status Tobacco use date assessed 10/02/24 10/02/24 10:23 Patient Tobacco Use Status Never used Tobacco 10/02/24 10:23 e-Cigarette/Vaping Use Never Used 10/02/24 10:23 PHQ-9: PHQ-9 Score PHQ-9: Total score 6 10/02/24 10:39 Depression Screening Interpretation: Positive Depression Screening Follow-up: Existing condition and In treatment Thrive Assessment: Date of Thrive Assessment Date Thrive assessed 10/02/24 10/02/24 10:23 Currently or been in a relationship where the following occur: No concerns reported Const General: cooperative, healthy appearing, comfortable and no acute distress Orientation/consciousness: patient oriented x3 HENMT Head: Yes normocephalic Ears: hearing grossly normal bilaterally General nose exam: Normal external nose present Eyes General: appearance normal, both eyes and all related structures Conjunctivae: conjunctivae normal Pupils: Equal, round and reactive pupils present Neck Neck: Yes full ROM and Yes no lymphadenopathy Resp Effort & Inspection: normal respiratory effort Auscultation: clear to auscultation bilaterally, no crackles, no rales, no rhonchi and no wheezes Cardio Rate: regular rate Rhythm: regular rhythm Skin General skin exam: no rashes or lesions noted Neuro General: patient oriented x3 Cranial nerves: Yes CN's II-XII intact bilaterally, Yes Facial sensation intact/muscles of mastication intact, Yes Equal, round and reactive pupils present, Yes Normal accommodation reflex present, Yes Bilaterally intact EOM present, Yes Nystagmus not present, Yes Normal facial strength present, Yes Midline tongue present, Yes Symmetric palate elevation present, Yes Ability to bilaterally rotate head present and Yes Ability to bilaterally elevate shoulders present Cognition (Neuro): normal cognition Gait exam (Neuro): Normal gait present Motor exam (neuro): 5/5 motor strength present throughout and Pronator motor function not present Extrem General: Yes normal to inspection, Yes full ROM and No edema Psych Affect: normal affect Attitude: cooperative Insight: Good insight present (Psych) Judgement: Good judgement present (Psych) Coding Level of Care Code Est Pt Level 4 (02071) Diagnoses Depression F32.A Gastroesophageal reflux disease, unspecified whether esophagitis present K21.9 Esophagitis presence: esophagitis presence not specified Irritable bowel syndrome with both constipation and diarrhea K58.2 Asthma J45.909 Asthma severity: moderate Asthma persistence: persistent Seasonal allergies J30.2 EDDIE (obstructive sleep apnea) G47.33 Obesity (BMI 30.0-34.9) E66.811 Screening for hypercholesterolemia Z13.220 Sebaceous cyst L72.3 Head mass R22.0 Additional Codes DAVID-7 Assessment Billing - DAVID-7 Assessment Tool: DAVID-7 Assessment 85560 ([id number]) PHQ-9 - 86633 - PHQ-9 Billing: Yes ([id number]) Assessment & Plan Assessment & Plan (1) Depression: Comment: [facility] weekly Code(s): F32.A - Depression, unspecified Category: Medical Plan: Patient currently following with [facility] and finds this beneficial. Would like to avoid the use of medications at this time. (2) GERD (gastroesophageal reflux disease): Code(s): K21.9 - Gastro-esophageal reflux disease without esophagitis Category: Medical Qualifiers: Esophagitis presence: esophagitis presence not specified Qualified Code(s): K21.9 - Gastro-esophageal reflux disease without esophagitis Plan: Avoid trigger foods such as citrus, tomato products, soda, caffeine, spicy foods and other foods that may be irritating to your stomach. Avoid laying flat 3-4 hours after eating and elevate the head of the bed 30 degrees to prevent acid from moving into the esophagus. Plan to restart on omeprazole and continue with famotidine as needed (3) Irritable bowel syndrome with both constipation and diarrhea: Code(s): K58.2 - Mixed irritable bowel syndrome Category: Medical Plan: Continue to follow with GI. (4) Asthma: Code(s): J45.909 - Unspecified asthma, uncomplicated Category: Medical Qualifiers: Asthma severity: moderate Asthma persistence: persistent Plan: Asthma is not currently well controlled as she has been out of her montelukast and her albuterol inhaler. On exam today she does have audible wheezing on auscultation throughout all lung montez. Plan to give prednisone taper for acute asthma exacerbation and restart on albuterol and montelukast. Consider maintenance inhaler if symptoms are not well controlled after restarting medications. Patient to follow up in 2 months or sooner as needed (5) Seasonal allergies: Code(s): J30.2 - Other seasonal allergic rhinitis Category: Medical Plan: Referral was placed to crude oil treater at patient request. (6) EDDIE (obstructive sleep apnea): Comment: no cpap - 2019 no EDDIE Code(s): G47.33 - Obstructive sleep apnea (adult) (pediatric) Category: Medical Plan: Plan to repeat sleep study as 2019 sleep study did not reveal obstructive sleep apnea (7) Obesity (BMI 30.0-34.9): Code(s): E66.811 - Obesity, class 1 Category: Medical Plan: Healthy diet and regular exercise is encouraged. (8) Screening for hypercholesterolemia: Code(s): Z13.220 - Encounter for screening for lipoid disorders Category: Medical Plan: Blood work ordered (9) Sebaceous cyst: Code(s): L72.3 - Sebaceous cyst Category: Medical Plan: Patient reports recurrent cyst that recently began with the warmer weather. I discussed keeping high contact areas clean and dry in the use of full-body deodorants and powders to achieve this. Patient agrees to follow up if cysts are persistent or worsen (10) Head mass: Code(s): R22.0 - Localized swelling, mass and lump, head Category: Medical Plan: Patient reporting a head mass of the anterior aspect of the head. On exam there is no palpable mass however she states there is often swelling of the head and face followed by vision changes. Plan to obtain CAT scan for further evaluation as well as advised patient to follow up with eye doctor for visual changes. Neurovascularly intact today. Reviewed red flag symptoms and when to present for re-evaluation Plan The patient will restart montelukast and albuterol to manage asthma symptoms, with a follow-up planned to assess the effectiveness of these medications. A referral to an crude oil treater has been placed to better manage her allergic rhinitis. For her gastroesophageal reflux disease, famotidine will continue to be used, and omeprazole will be considered if symptoms persist. A home sleep study has been ordered to reassess her sleep apnea status, given the previous study showed no evidence of the condition. A CT scan of the head has been ordered to investigate the recurrent swelling and headaches, particularly given the a ssociated vision changes. The patient will also undergo blood work to ensure kidney function is adequate for the CT scan with contrast. For her depression, she will continue counseling at [facility] and any insurance issues affecting her sessions will be addressed. Preventative measures for sebaceous cysts have been discussed, focusing on hygiene and keeping the affected areas dry. The patient will be monitored for arthritis symptoms in her knees, and appropriate interventions will be considered if her mobility is further affected. Follow-up appointments will be scheduled to reassess her asthma management and the outcomes of the CT scan and sleep study. The patient has been advised to return if symptoms worsen or new symptoms develop. This note was constructed using voice recognition software. While every effort has been made to ensure accuracy and purchasing engineer, still areas may have been included sometimes these areas may affect the content or meeting of the given symptoms. Total time spent caring for the patient today was 30 minutes. This includes time spent before the visit reviewing the chart, time spent during the visit, and time spent after the visit and documentation. Patient was informed and verbally consented to the use of an ambient scribe for clinic note documentation during this visit. Orders: Orders Comprehensive Met. Panel Today K21.9 - Gastro-esophageal reflux disease without esophagitis, Z00.00 - Encounter for general adult medical examination without abnormal findings Vitamin B12 and Folate Today K21.9 - Gastro-esophageal reflux disease without esophagitis, Z13.21 - Encounter for screening for nutritional disorder Vitamin D 25-OH Total Today K21.9 - Gastro-esophageal reflux disease without esophagitis, Z00.00 - Encounter for general adult medical examination without abnormal findings TSH reflex Free T4 Today E66.811 - Obesity, class 1, Z00.00 - Encounter for general adult medical examination without abnormal findings RT home sleep study Today G47.33 - Obstructive sleep apnea (adult) (pediatric) Complete Blood Count Auto Diff Today K21.9 - Gastro-esophageal reflux disease without esophagitis, Z00.00 - Encounter for general adult medical examination without abnormal findings Lipid Panel Today Z13.220 - Encounter for screening for lipoid disorders CT head/brain wo/w IV con Today R22.0 - Localized swelling, mass and lump, head Referrals Allergy & Immunology Referral J30.2 - Other seasonal allergic rhinitis, J45.909 - Unspecified asthma, uncomplicated Medications: New albuterol sulfate 90 mcg/actuation (Ventolin HFA) 1 inh inhalation QID PRN 8.5 grams 0RF shortness of breath or wheezing montelukast 10 mg PO BEDTIME 90 tabs 0RF albuterol sulfate 90 mcg/actuation (Ventolin HFA) 1 inh inhalation QID PRN 8.5 grams 0RF shortness of breath or wheezing prednisone Take 4 tablets on days 1-2, take 3 tablets on days 3-4, take 2 tablets on days 5-6, take 1 tablet on days 7-8. 10 mg PO DIRECTED 20 tabs 0RF montelukast 10 mg PO BEDTIME 90 tabs 0RF Refilled famotidine (Pepcid) 20 mg PO BEDTIME 30 tabs 3RF K21.9 - Gastro-esophageal reflux disease without esophagitis omeprazole 20 mg PO DAILY 30 caps 2RF K21.9 - Gastro-esophageal reflux disease without esophagitis omeprazole 20 mg PO DAILY 30 caps 2RF K21.9 - Gastro-esophageal reflux disease without esophagitis ondansetron HCl 4 mg PO Q6H 90 tabs 8RF albuterol sulfate 2.5 mg (3 mL) inhalation Q4-6H PRN 90 mL 8RF bronchospasm ondansetron HCl 4 mg PO Q6H 90 tabs 8RF famotidine (Pepcid) 20 mg PO BEDTIME 30 tabs 3RF K21.9 - Gastro-esophageal reflux disease without esophagitis
== END 2024-10-02 10:55 | disposition home or self-care (01) ==
LOC: HO.HMCH 09:54
DX: K21.9 Gastro-esophageal reflux disease without esophagitis (principal); F32.A Depression, unspecified; E66.811 Obesity, class 1; Z68.34 Body mass index [BMI] 34.0-34.9, adult; K58.2 Mixed irritable bowel syndrome; J45.909 Unspecified asthma, uncomplicated; J30.2 Other seasonal allergic rhinitis; G47.33 Obstructive sleep apnea (adult) (pediatric); Z13.220 Encounter for screening for lipoid disorders; L72.3 Sebaceous cyst; R22.0 Localized swelling, mass and lump, head

== ENCOUNTER → 2024-10-02 09:53 | Outpatient (BNVA) | payer OTHER, SELFPAY | DX: K21.9 Gastro-esophageal reflux disease without esophagitis (principal); K58.2 Mixed irritable bowel syndrome; F32.A Depression, unspecified; J45.909 Unspecified asthma, uncomplicated; G47.33 Obstructive sleep apnea (adult) (pediatric); E66.811 Obesity, class 1; L72.3 Sebaceous cyst; R22.0 Localized swelling, mass and lump, head; Z68.34 Body mass index [BMI] 34.0-34.9, adult | CPT/HCPCS: 96127; 99212 ==

== ENCOUNTER 2024-11-02 09:20 | Outpatient (REF) | payer OTHER, SELFPAY ==
--- NOTE | ~2024-11-02 | CT_ITS ---
EXAMINATION: CT HEAD WITH CONTRAST CLINICAL INFORMATION: R 22.0. Localized swelling, mass and lump. COMPARISON: October 25, 2022 TECHNIQUE: Contiguous axial imaging was performed from the skull base to vertex following the administration of 85 mL of Omnipaque [address] examination was performed using dose optimization techniques as appropriate, variously including the following: *Automated exposure control *Adjustment of mA and/or kV according to patient size (this includes techniques or standardized protocols for targeted exams where dose is matched to indication/reason for exam; i.e. extremities or head) *Use of iterative reconstruction technique. DLP: 720 mGy centimeter. FINDINGS: No abnormal enhancement within the intra-axial or the extra-axial compartment of the cranium. Gusman-white matter differentiation is normal. Posterior cranial fossa contents demonstrated no enhancing lesion. Normal position of the cerebellar tonsils. Sellar/suprasellar region demonstrated no gross masses. Main cerebral venous sinuses are patent without intraluminal filling defects. No enhancing mass in the intraconal or extraconal compartments of the orbits. The eyeballs appear intact and normal. Normal enhancement pattern of the extraocular muscles. No acute fracture in the bony calvarium or the skull base. No gross lytic or blastic lesions in the bony calvarium. Mucosal thickening, paranasal sinuses without air-fluid levels. Tympanic cavities and mastoid cells are aerated with poor pneumatization of the right mastoid air cells. CT/CT head/brain w IV con IMPRESSION: No abnormal enhancement or gross brain abnormality by CT. Where is the palpable lump/mass ? Electronically signed by: Chau Cobos MD 11/02/2024 10:59 AM EDT
[2024-11-02] MEDS: iohexoL 350 MG/ML 100 ML INFUS..BTL IV (10:38)
== END 2024-11-02 09:21 | disposition home or self-care (01) ==
LOC: HO.CT 09:20
DX: R22.0 Localized swelling, mass and lump, head (principal)
CPT/HCPCS: 70460; Q9967

== ENCOUNTER → 2024-11-02 09:21 | Outpatient (BNV) | payer OTHER, SELFPAY | PROVIDERS: Visit Provider Radiology Diagnostic Radiology | DX: R22.0 Localized swelling, mass and lump, head (principal) | CPT/HCPCS: 70460 ==

== ENCOUNTER 2024-12-04 10:21 | Outpatient (REF) | payer OTHER, SELFPAY ==
[2024-12-04 12:57] LABS: Bacterial Vaginosis PCR POSITIVE (Negative); Candida Group PCR NOT DETECTED (Not Detect); Candida glab krusei PCR NOT DETECTED (Not Detect); Trichomonas vaginalis PCR NOT DETECTED (Not Detect)
== END 2024-12-04 10:22 | disposition home or self-care (01) ==
LOC: HO.LNP 10:21
DX: N89.8 Other specified noninflammatory disorders of vagina (principal); F32.A Depression, unspecified; E66.811 Obesity, class 1; K21.9 Gastro-esophageal reflux disease without esophagitis; J45.909 Unspecified asthma, uncomplicated; G47.33 Obstructive sleep apnea (adult) (pediatric); R22.0 Localized swelling, mass and lump, head; Z79.52 Long term (current) use of systemic steroids; Z79.899 Other long term (current) drug therapy
CPT/HCPCS: 81515; 96127; 99212

== ENCOUNTER 2024-12-04 10:21 | Outpatient (AMB) | payer OTHER, SELFPAY ==
[2024-12-04 10:23] VITALS: BP 110/58; PULSE 114; O2SAT 99; BMI 34.4
--- NOTE | 2024-12-04 10:23 | MHC.PC.OV ---
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 Required: No Accompanied by: Self / Same As Patient Allergies penicillin V Allergy (Mild, Verified 12/04/24 10:43) rash Penicillins Allergy (Mild, Verified 12/04/24 10:43) RASH Medication List - Last Reconciled 12/04/24 by Mariya Perea PA-C albuterol sulfate 2.5 mg (3 mL) inhalation Q4-6H PRN albuterol sulfate 90 mcg/actuation (Ventolin HFA) 1 inh inhalation QID PRN famotidine (Pepcid) 20 mg PO BEDTIME montelukast 10 mg PO BEDTIME nebulizers to use daily omeprazole 20 mg PO DAILY ondansetron HCl 4 mg PO Q6H prednisone 10 mg PO DIRECTED Tobacco use date assessed: 12/04/24 Dental Screening Dental Screen Date: 12/04/24 Did you have a dental visit in the last 12 months?: No Did you have a dental problem in the last 6 months where you did not have access to dental care?: No Was dental information given to patient?: No HPI [facility] f/u HPI Details 43 year old female with past medical history with asthma, GERD, IBS, depression last seen 09/2024 coming in for follow up. Presenting with vision changes, acid reflux, and asthma. Despite a normal head CT scan, the patient continues to experience vision changes and has been referred to an prescription eyeglass maker for further evaluation. Persistent acid reflux symptoms are present despite medication. The patient frequently eats late at night, which worsens her symptoms. A possible hiatal hernia was discussed as a contributing factor. Plan for upper GI series for further evaluation. The patient uses montelukast and albuterol inhaler four times daily indicating poor asthma control. Daily marijuana use was noted, which may affect asthma management. The patient does not smoke cigarettes. A single episode of grayish discharge was reported, and a swab test was planned to investigate further. 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 1. Little interest or pleasure in doing things: several days 2. Feeling down, depressed, or hopeless: several days 3. Trouble falling or staying asleep, or sleeping too much: several days 4. Feeling tired or having little energy: several days 5. Poor appetite or overeating: several days 6. Feeling bad about yourself - or that you are a failure or have let yourself or your family down: not at all 7. Trouble concentrating on things, such as reading the newspaper or watching television: several days 8. Moving or speaking so slowly that other people could have noticed. Or the opposite - being so fidgety or restless that you have been moving around a lot more than usual: not at all 9. Thoughts that you would be better off or of hurting yourself in some way: not at all Total score: 6 Depression Screening Interpretation: Positive Depression Screening Follow-up: Existing condition and In treatment Depression Screening Done: Yes 48841 - PHQ-9 Billing: Yes Source: Developed by Drs. Ino Barajas, Mayra Cuello, Cyril Kilgore and colleagues, with an educational franklin from [employer]. Thrive Questionnaire Date Thrive assessed: 09/26/24 I am a: Patient What is your living situation today?: I have a steady place to live Within the past 12 months, did the food you bought not last and you didn't have the money to get more?: Never true Within the past 12 months, did you worry whether your food would run out before you got money to buy more?: Sometimes True Do you have trouble paying for medicines?: No Do you have trouble getting transportation to medical appointments?: No Do you have trouble paying your heating and electricity bill?: Yes Do you have trouble taking care of your child, family member or friend?: No Do you have trouble with day-to-day activities such as bathing, preparing meals, shopping, managing finances, etc.?: No Are you currently unemployed and looking for a job?: Yes Are you interested in more education?: No Please select the resources that you would like help with: None Currently or been in a relationship where the following occur: No concerns reported THRIVE Score: 2 DAVID-7 AMB Questionnaire DAVID-7 Date DAVID - 7 assessed: 12/04/24 Feeling nervous, anxious, or on edge: 1 = Several days Not being able to stop or control worryin = Several days Worrying too much about different things: 2 = More than half the days Trouble relaxin = Several days Being so restless that it is hard to sit still: 1 = Several days Becoming easily annoyed or irritable: 1 = Several days Feeling afraid as if something awful might happen: 1 = Several days Total DAVID-7 score (0-4 normal; 5-9 mild; 10-14 moderate; 15-21 severe): 8 Source: Developed by Drs. Ino Barajas, Mayra Cuello, Cyril Kilgore and colleagues, with an educational franklin from [employer]. DAVID-7 Assessment Billing DAVID-7 Assessment Tool: DAVID-7 Assessment 97113 Review of Systems Const Denies body aches, Denies chills, Denies fever(s), Denies headache(s) and Denies poor appetite Eyes Reports no additional complaints ENT Denies dysphagia, Denies dizziness, Denies headache(s) and Denies odynophagia Card Denies chest pain, Denies syncope, Denies edema, Denies irregular heart rhythm, Denies lightheadedness and Denies dyspnea Resp Denies cough and Denies dyspnea GI Denies abdominal pain, Denies constipation, Denies dysphagia, Reports heartburn, Denies diarrhea, Reports nausea, Denies odynophagia and Reports vomiting Reports no additional complaints Musc Reports no additional complaints and Denies abnormal gait Skin/Breast Reports system reviewed and no additional complaints, except as documented Neuro Denies abnormal gait, Denies dizziness, Denies syncope and Denies headache(s) Psych Reports no additional complaints Physical exam (Primary Care) Vital Signs: Last Vital Signs Pulse 90 12/04/24 10:59 BP 110/58 L 12/04/24 10:23 Pulse Ox 99 12/04/24 10:23 Oxygen Delivery Method Room Air 12/04/24 10:23 BMI result Body Mass Index 34.4 Tobacco/Smoking Status: Tobacco use Status Tobacco use date assessed 12/04/24 12/04/24 10:30 Patient Tobacco Use Status Never used Tobacco 12/04/24 10:30 e-Cigarette/Vaping Use Never Used 12/04/24 10:30 PHQ-9: PHQ-9 Score PHQ-9: Total score 6 12/04/24 10:55 Depression Screening Interpretation: Positive Depression Screening Follow-up: Existing condition and In treatment Thrive Assessment: Date of Thrive Assessment Date Thrive assessed 09/26/24 12/04/24 10:30 Currently or been in a relationship where the following occur: No concerns reported Const General: cooperative, healthy appearing, comfortable and no acute distress Orientation/consciousness: patient oriented x3 HENMT Head: Yes normocephalic Ears: hearing grossly normal bilaterally General nose exam: Normal external nose present Eyes General: appearance normal, both eyes and all related structures Conjunctivae: conjunctivae normal Neck Neck: Yes full ROM and Yes no lymphadenopathy Resp Effort & Inspection: normal respiratory effort Auscultation: clear to auscultation bilaterally, no crackles, no rales, no rhonchi and no wheezes Cardio Rate: regular rate Rhythm: regular rhythm Skin General skin exam: no rashes or lesions noted Neuro General: patient oriented x3 Gait exam (Neuro): Normal gait present Extrem General: Yes normal to inspection, Yes full ROM and No edema Psych Affect: normal affect Attitude: cooperative Insight: Good insight present (Psych) Judgement: Good judgement present (Psych) Coding Level of Care Code Est Pt Level 4 (59444) Diagnoses Depression F32.A Obesity (BMI 30.0-34.9) E66.811 Gastroesophageal reflux disease, unspecified whether esophagitis present K21.9 Esophagitis presence: esophagitis presence not specified Asthma J45.909 Asthma persistence: persistent Asthma severity: moderate EDDIE (obstructive sleep apnea) G47.33 Head mass R22.0 Vaginal discharge N89.8 Additional Codes DAVID-7 Assessment Billing - DAVID-7 Assessment Tool: DAVID-7 Assessment 92129 ([id number]) PHQ-9 - 61466 - PHQ-9 Billing: Yes ([id number]) Assessment & Plan Assessment & Plan (1) Depression: Comment: [facility] weekly Code(s): F32.A - Depression, unspecified Category: Medical Plan: Patient currently following with [facility] and finds this beneficial. Would like to avoid the use of medications at this time. (2) Obesity (BMI 30.0-34.9): Code(s): E66.811 - Obesity, class 1 Category: Medical Plan: Healthy diet and regular exercise is encouraged. (3) GERD (gastroesophageal reflux disease): Code(s): K21.9 - Gastro-esophageal reflux disease without esophagitis Category: Medical Qualifiers: Esophagitis presence: esophagitis presence not specified Qualified Code(s): K21.9 - Gastro-esophageal reflux disease without esophagitis Plan: Avoid trigger foods such as citrus, tomato products, soda, caffeine, spicy foods and other foods that may be irritating to your stomach. Avoid laying flat 3-4 hours after eating and elevate the head of the bed 30 degrees to prevent acid from moving into the esophagus. The patient's omeprazole dosage will be increased to 40 mg at bedtime, and famotidine will be held unless necessary. Dietary modifications were advised, including avoiding late-night eating and specific trigger foods. An imaging study is planned to further evaluate persistent nausea and vomiting. (4) Asthma: Code(s): J45.909 - Unspecified asthma, uncomplicated Category: Medical Qualifiers: Asthma persistence: persistent Asthma severity: moderate Plan: The patient will be prescribed a maintenance inhaler to be used twice daily, with albuterol reserved for rescue use. Montelukast will be continued. A follow-up is planned in two months to reassess asthma control. Strongly advised to stop smoking. (5) EDDIE (obstructive sleep apnea): Comment: no cpap - 2019 no EDDIE Code(s): G47.33 - Obstructive sleep apnea (adult) (pediatric) Category: Medical Plan: Plan to repeat sleep study as 2019 sleep study did not reveal obstructive sleep apnea. Test scheduled for 01/13/2025. (6) Head mass: Code(s): R22.0 - Localized swelling, mass and lump, head Category: Medical Plan: Cat scan of the head was negative. She has not had recurrence of the swelling does to visual changes. Referral was placed optometry today. (7) Vaginal discharge: Code(s): N89.8 - Other specified noninflammatory disorders of vagina Category: Medical Plan: A swab test will be conducted to rule out bacterial vaginosis or a yeast infection following a one-time occurrence of grayish discharge during intercourse. Swab resulted positive for BV and metronidazole was sent to pharmacy. Plan This note was constructed using voice recognition software. While every effort has been made to ensure accuracy and batch operator, still areas may have been included sometimes these areas may affect the content or meeting of the given symptoms. Total time spent caring for the patient today was 20 minutes. This includes time spent before the visit reviewing the chart, time spent during the visit, and time spent after the visit and documentation. Patient was informed and verbally consented to the use of an ambient scribe for clinic note documentation during this visit. Orders: Orders [place] upper GI series Today K21.9 - Gastro-esophageal reflux disease without esophagitis Bacterial Vaginosis Panel Today N89.8 - Other specified noninflammatory disorders of vagina Referrals Optometry Referral H53.9 - Unspecified visual disturbance Medications: New omeprazole 40 mg PO DAILY 90 caps 0RF budesonide-formoterol 80-4.5 mcg/actuation (Symbicort) 1 inh inhalation BID 10.2 grams 0RF Discontinued omeprazole Discontinued Reason: Patient no longer taking 20 mg PO DAILY 30 caps 2RF K21.9 - Gastro-esophageal reflux disease without esophagitis prednisone Take 4 tablets on days 1-2, take 3 tablets on days 3-4, take 2 tablets on days 5-6, take 1 tablet on days 7-8. Discontinued Reason: Patient no longer taking 10 mg PO DIRECTED 20 tabs 0RF On Hold famotidine (Pepcid) Hold Comment: Doctor's Order 20 mg PO BEDTIME 30 tabs 3RF K21.9 - Gastro-esophageal reflux disease without esophagitis
[2024-12-04 10:59] VITALS: PULSE 90
== END 2024-12-04 11:17 | disposition home or self-care (01) ==
LOC: HO.HMCH 10:22
DX: K21.9 Gastro-esophageal reflux disease without esophagitis (principal); F32.A Depression, unspecified; E66.811 Obesity, class 1; Z68.34 Body mass index [BMI] 34.0-34.9, adult; J45.909 Unspecified asthma, uncomplicated; G47.33 Obstructive sleep apnea (adult) (pediatric); R22.0 Localized swelling, mass and lump, head; N89.8 Other specified noninflammatory disorders of vagina

== ENCOUNTER 2024-12-04 11:37 | Outpatient (REF) | payer OTHER, SELFPAY | END 2024-12-04 11:38 | disposition home or self-care (01) | LOC: HO.LAB 11:37 | DX: Z13.89 Encounter for screening for other disorder (principal) ==

== ENCOUNTER 2024-12-26 10:23 | Emergency (ER) | payer OTHER, SELFPAY ==
[2024-12-26 10:43] VITALS: BP 125/61; PULSE 91; RESP 16; TEMP 37; O2SAT 97; BMI 39.1
--- NOTE | 2024-12-26 10:43 | ED.GENADULT ---
HPI - General Adult General Chief complaint: Back Pain/Injury Stated complaint: back pain going to front Time Seen by Provider: 12/26/24 15:24 Source: patient, RN notes reviewed and old records reviewed Mode of arrival: ambulatory Limitations: no limitations History of Present Illness ED Provider: Miguel HPI narrative: Patient is a 44-year-old female presenting in the emergency department with complaint of bilateral lower back pain radiating to the suprapubic area. Recently treated for bacterial vaginosis, completed course of antibiotics on Tuesday. Last menstrual period was 1 month ago, due to get period this week. Denies any flank pain or fevers. Denies nausea or vomiting. Denies radiation of pain to legs. MD complaint: back pain Onset (ago): day(s) Related Data Previous Rx's ?Medication ?Instructions ?Recorded nebulizers #1 ea 10/17/23 famotidine 20 mg tablet (Pepcid) 20 mg PO BEDTIME #30 tabs 10/02/24 Held on 12/04/24. Instructions: Doctor's Order montelukast 10 mg tablet 10 mg PO BEDTIME #90 tabs 10/02/24 ondansetron HCl 4 mg tablet 4 mg PO Q6H #90 tabs 10/02/24 albuterol sulfate 2.5 mg/3 mL 2.5 mg (3 mL) inhalation Q4-6H PRN 11/06/24 (0.083 %) solution for nebulization bronchospasm #90 mL albuterol sulfate 90 mcg/actuation 1 inh inhalation QID PRN shortness 11/29/24 aerosol inhaler (Ventolin HFA) of breath or wheezing #8.5 grams budesonide-formoterol HFA 80 1 inh inhalation BID #10.2 grams 12/04/24 mcg-4.5 mcg/actuation aerosol inhaler (Symbicort) metronidazole 500 mg tablet 500 mg PO BID #14 tabs 12/04/24 omeprazole 40 mg capsule,delayed 40 mg PO DAILY #90 caps 12/04/24 release clindamycin phosphate 2 % vaginal 1 appful vaginal BEDTIME 7 days 12/11/24 cream #40 grams nitrofurantoin macrocrystal 100 mg 100 mg PO BID 5 days #10 caps 12/26/24 capsule phenazopyridine 200 mg tablet 200 mg PO TID 6 doses #6 tabs 12/26/24 Allergies Allergy/AdvReac Type Severity Reaction Status Date / Time penicillin V Allergy Mild rash Verified 12/26/24 10:45 Penicillins Allergy Mild RASH Verified 12/26/24 10:45 Review of Systems Review of Systems: As per HPI Yes all other systems are reviewed and are negative Constitutional: Constitutional: Reports as per HPI [facility] Past Medical History Medical History Seasonal allergies Gastroparesis EDDIE (obstructive sleep apnea) Asthma Surgical History History of carpal tunnel surgery of right wrist History of cholecystectomy Social History Social History Housing: Apartment Patient Tobacco Use Status: Never used Tobacco e-Cigarette/Vaping Use: Never Used Second Hand Smoke Exposure: No Advance Directives: No Advance Directives Information Provided: Yes service: No Current occupational status: employed 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 Blood pressure normal. Heart rate normal. Respiratory rate normal. Temperature normal. Oxygen saturation normal. Const General: cooperative, healthy appearing and no acute distress Orientation/consciousness: oriented to person, oriented to place, oriented to time and patient oriented x3 Limitations: no limitations [facility] Head: Yes normocephalic and Yes atraumatic Ears: external ears normal General nose exam: Normal external nose present Face and sinus: Yes face symmetric Mouth: oropharynx normal and moist mucous membranes Throat: Yes uvula midline Eyes Pupils: Equal, round and reactive pupils present Neck Neck: Yes normal visual inspection and Yes supple Resp Effort & Inspection: normal respiratory effort and able to speak in complete sentences Auscultation: clear to auscultation bilaterally Cardio Rate: regular rate Rhythm: regular rhythm Heart sounds: S1 normal heart sound present and S2 normal heart sound present GI Palpation (GI): Soft to palpation and Tenderness to palpation present (GI) suprapubicly Auscultation: normoactive bowel sounds General: Yes no CVA tenderness Back/Spine/Pelvis Back: no CVA tenderness Thoracic/Lumbar Spine: thoracic and lumbar spine normal to inspection, thoraco-lumbar ROM normal, straight leg raise negative bilaterally, paraspinal muscle tenderness bilaterally in the mid lumbar, No thoracic spinal tenderness and No lumbar spinal tenderness Skin General skin exam: elasticity normal and turgor normal Neuro General: oriented to person, oriented to place, oriented to time, patient oriented x3, gait normal, tone normal, moves all extremities, Normal light touch and pain sensation, no focal motor deficits, CN's II-XI intact bilaterally and deep tendon reflexes 2+ bilaterally Cranial nerves: Yes Equal, round and reactive pupils present Cognition (Neuro): normal cognition Motor exam (neuro): 5/5 motor strength present throughout, Normal motor muscle tone present throughout and Motor abnormalities not present Extrem General: Yes full ROM, Yes no pedal edema and Yes no calf tenderness Psych Mental Status: mental status grossly normal Affect: normal affect Thought process: Normal thought process present Course Course Course Narrative: This is a rapid medical exam performed by Maru Rivera NP: Additional HPI, ROS, PE not included below will be deferred to primary provider. Patient is a 44y/o F presenting with complaint of bilateral lower back pain radiating to the front. Recently treated for BV. Plan: UA, labs Medical Decision Making Medical Decision Making [facility] Narrative: Patient is a 44-year-old female presenting in the emergency department with complaint of bilateral lower back pain radiating to the suprapubic area. On exam patient is awake, A+Ox3, VS WNL, afebrile, normal neurological exam without focal deficits, physical exam findings as above. Given reported symptoms and physical exam findings, initial differential includes but is not limited to UTI, pyelonephritis, lumbar strain. Do not suspect malignancy/mass, SEA, cauda equina/cord compression. Labs notable for no leukocytosis or evidence of KEITH. UA notable for 2+ leukocytes, 21-50 wbc's, trace bacteria. Will treat for UTI with Macrobid and phenazopyridine. Follow up with PCP as needed. Return precautions discussed. Patient verbalized understanding of and agreement with plan. Differential Diagnosis Differential Diagnoses: The differential diagnosis associated with the presentation includes As per [facility] Admission/Observation Consideration of admission/observation: Escalation of care including admission/observation considered Patient would have been admitted to the hospital and transferred to appropriate facility had their clinical presentation warranted hospital admission. Lab Data [facility] Lab Attestation statement: I reviewed the patient's lab results. as per [facility] 12/26/24 10:55 12/26/24 10:55 Labs: Lab Results 12/26/24 12/26/24 Range/Units 10:55 10:56 WBC 7.7 (4.8-10.8) X10*3/uL RBC 5.47 (4.20-5.50) X10*6/uL Hgb 12.4 (12.0-16.0) g/dl Hct 40.0 (37.0-47.0) % MCV 73.1 L (80.0-98.0) fL MCH 22.7 L (27.0-33.0) pg MCHC 31.0 (31.0-35.0) g/dl RDW 16.0 (11.0-16.0) % Plt Count 402 H (160-400) X10*3/uL MPV 9.3 L (9.4-12.3) fL Immature Gran % (Auto) 0.3 (0.0-0.4) % Neut % (Auto) 66.0 (45-73) % Lymph % (Auto) 21.3 (20-40) % [place] % (Auto) 8.6 (2-11) % Eos % (Auto) 3.1 (0-4) % Baso % (Auto) 0.7 (0-2) % Lymph # (Auto) 1.6 (1.2-4.9) X10*3/uL [place] # (Auto) 0.7 (0.1-1.2) X10*3/uL Eos # (Auto) 0.2 (0.0-0.4) X10*3/uL Baso # (Auto) 0.1 (0.0-0.2) X10*3/uL Abs Immat Gran (auto) 0.02 (0.00-0.03) X10*3/uL Absolute Neuts (auto) 5.1 (2.0-8.3) x10*3/uL Absolute Nucleated RBC 0.000 (0.0-0.012) X10*3/uL Nucleated RBC % (auto) 0.0 (0.0-0.2) /100WBC Sodium 139 (135-145) mmol/L Potassium 4.3 (3.3-5.1) mmol/L Chloride 108 (96-108) mmol/L Carbon Dioxide 24 (22-29) mmol/L Anion Gap 11 L (12-20) BUN 13 (9-16) mg/dL Creatinine 0.69 (0.5-1.4) mg/dL Estim Creat Clear Calc 98.2 Estimated GFR > 60 Random Glucose 131 H (60-115) mg/dL Calcium 9.0 (8.4-10.2) mg/dL Total Bilirubin 0.4 (0.0-1.0) mg/dL AST 21 (5-31) U/L ALT 12 (0-31) U/L Alkaline Phosphatase 63 (39-117) U/L Total Protein 7.5 (6.5-8.0) g/dL Albumin 4.4 (3.5-5.0) g/dL Beta HCG, Quant < 2 mIU/mL Urine Color Yellow Urine Appearance Clear Urine pH 5.5 (5.0-9.0) Ur Specific [place] 1.020 (1.005-1.025) Urine Protein Negative (Neg-Trace) mg/dL Urine Glucose (UA) Negative (Negative) mg/dL Urine Ketones Negative (Negative) mg/dL Urine Blood Negative (Negative) Urine Nitrite Negative (Negative) Ur Leukocyte Esterase Moderate (2+) H (Negative) Urine RBC 0-2 (0-2) /HPF Urine WBC 21-50 H (0-5) /HPF Ur Squamous Epith Cells 0-2 (0-2) /HPF Urine Bacteria Trace (None Seen) Hyaline Casts 0-2 (0-2) /LPF External Record Review External record reviewed: Inpatient record, Office record and Outpatient record Prescription Management I considered prescription management with: Pain Medication and Antibiotic Discharge Plan Discharge Clinical Impression: UTI (urinary tract infection) Patient Disposition: Home, Self-Care Instructions: Urinary Tract Infection in Women (DC) Additional Instructions: You have been evaluated in the emergency department today for back pain. Your evaluation, including urinalysis, suggests that your symptoms are due to urinary tract infection. Please take your prescribed antibiotics for the full course of medication as directed. Please follow-up with your primary care provider within 2 days. Return to the emergency department if you experience fevers 100.4? F or greater, worsening or uncontrolled pain, vomiting, flank pain, or for any other concerning symptoms. Prescriptions: New nitrofurantoin macrocrystal 100 mg capsule 100 mg PO BID 5 Days Qty: 10 0RF Rx Instructions: must administer with a meal/food phenazopyridine 200 mg tablet 200 mg PO TID Qty: 6 0RF No Action (DME) nebulizers Misc See Rx Instructions .Route Qty: 1 3RF Rx Instructions: to use daily albuterol sulfate 2.5 mg /3 mL (0.083 %) solution for nebulization 2.5 mg inhalation Q4-6H PRN (Reason: bronchospasm) Qty: 90 8RF albuterol sulfate [Ventolin HFA] 90 mcg/actuation HFA aerosol inhaler 1 inh inhalation QID PRN (Reason: shortness of breath or wheezing) Qty: 8.5 0RF metronidazole 500 mg tablet 500 mg PO BID Qty: 14 0RF clindamycin phosphate 2 % cream 1 appful vaginal BEDTIME 7 Days Qty: 40 0RF montelukast 10 mg tablet 10 mg PO BEDTIME Qty: 90 0RF famotidine [Pepcid] 20 mg tablet 20 mg PO BEDTIME Qty: 30 3RF ondansetron HCl 4 mg tablet 4 mg PO Q6H Qty: 90 8RF omeprazole 40 mg capsule,delayed release(DR/EC) 40 mg PO DAILY Qty: 90 0RF budesonide-formoterol [Symbicort] 80-4.5 mcg/actuation HFA aerosol inhaler 1 inh inhalation BID Qty: 10.2 0RF Print Language: [place]
[2024-12-26 11:04] LABS: MANUAL DIFF FLAG NO
[2024-12-26 11:07] LABS: Hematocrit 40.0 % (37.0-47.0); Hemoglobin 12.4 g/dl (12.0-16.0); Imm Gran Abs Auto 0.02 X10*3/uL (0.00-0.03); Imm Gran Pct Auto 0.3 % (0.0-0.4); Lymphocytes Absolute Auto 1.6 X10*3/uL (1.2-4.9); Mean Corpuscular HGB Conc 31.0 g/dl (31.0-35.0); Mean Corpuscular Hemoglobin 22.7 pg (27.0-33.0); Mean Corpuscular Volume 73.1 fL (80.0-98.0); NRBC Abs Auto 0.000 X10*3/uL (0.0-0.012); NRBC Pct Auto 0.0 /100WBC (0.0-0.2); Platelet Count 402 X10*3/uL (160-400); Red Blood Count 5.47 X10*6/uL (4.20-5.50); White Blood Count 7.7 X10*3/uL (4.8-10.8)
[2024-12-26 11:10] LABS: Appearance Urine Clear; Glucose Urine UA Negative (Negative); PH 5.5 (5.0-9.0); Specific Gravity - Urine 1.020 (1.005-1.025); UMIC TRIGGER UACC YES
[2024-12-26 11:12] LABS: UACC Culture Trigger YES
[2024-12-26 11:34] LABS: Alanine Aminotransferase 12 U/L (0-31); Albumin Level 4.4 g/dL (3.5-5.0); Alkaline Phosphatase 63 U/L (39-117); Anion Gap 11 (12-20); Aspartate Amino Transferase 21 U/L (5-31); Blood Urea Nitrogen 13 mg/dL (9-16); Calcium 9.0 mg/dL (8.4-10.2); Carbon Dioxide 24 mmol/L (22-29); Chloride 108 mmol/L (96-108); Creatinine Clr Calc Pharmacy 98.2; Estimated Glomerular Filt Rate > 60; Potassium 4.3 mmol/L (3.3-5.1); Sodium 139 mmol/L (135-145); Total Protein 7.5 g/dL (6.5-8.0)
== END 2024-12-26 17:05 | disposition home or self-care (01) ==
PROVIDERS: Registered Nurse Emergency; Emergency Provider Emergency Medicine Emergency Medical Services
DX: N39.0 Urinary tract infection, site not specified (principal); M54.50 Low back pain, unspecified
CPT/HCPCS: 36415; 80053; 81001; 84702; 85025; 87086; 87147; 99282; 99283

== ENCOUNTER → 2025-01-03 09:23 | Outpatient (REF) | payer OTHER, SELFPAY | LOC: HO.SL 09:23 | DX: G47.33 Obstructive sleep apnea (adult) (pediatric) (principal) | CPT/HCPCS: 95806 ==

== ENCOUNTER → 2025-01-03 10:00 | Outpatient (BNV) | payer OTHER, SELFPAY | PROVIDERS: Visit Provider Internal Medicine | DX: R06.83 Snoring (principal) | CPT/HCPCS: 95806 ==

== ENCOUNTER 2025-01-28 09:42 | Outpatient (AMB) | payer OTHER, SELFPAY ==
[2025-01-28 09:46] VITALS: BP 110/70; PULSE 89; TEMP 36.3; O2SAT 98; BMI 39.4
--- NOTE | 2025-01-28 09:46 | A.OFFPC_ITS ---
Vital Signs 01/28/25 09:46 Height 4 ft 11 in Weight 195 lb 4 oz BMI 39.4 BP 110/70 Blood Pressure Location Lt brachial Position Sitting Pulse 89 Pulse Source Pulse Oximeter Temp 97.3 F Temp Source Temporal Artery Scan Pulse Oximetry (%) 98 Oxygen Delivery Method Room Air Intake Visit Reasons: 2 month f/u C Architect Required: No Accompanied by: Self / Same As Patient Allergies penicillin V Allergy (Mild, Verified 01/28/25 10:00) rash Penicillins Allergy (Mild, Verified 01/28/25 10:00) RASH Medication List - Last Reconciled 01/28/25 by Mariya Perea PA-C albuterol sulfate 2.5 mg (3 mL) inhalation Q4-6H PRN albuterol sulfate 90 mcg/actuation (Ventolin HFA) 1 inh inhalation QID PRN budesonide-formoterol 80-4.5 mcg/actuation (Symbicort) 1 inh inhalation BID clindamycin phosphate 2% 1 appful vaginal BEDTIME 7 days famotidine (Pepcid) 20 mg PO BEDTIME Held on 12/04/24. Instructions: Doctor's Order metronidazole 500 mg PO BID montelukast 10 mg PO BEDTIME nebulizers to use daily nitrofurantoin macrocrystal 100 mg PO BID 5 days omeprazole 40 mg PO DAILY ondansetron HCl 4 mg PO Q6H phenazopyridine 200 mg PO TID 6 doses Tobacco use date assessed: 01/28/25 Dental Screening Dental Screen Date: 01/28/25 Did you have a dental visit in the last 12 months?: No Did you have a dental problem in the last 6 months where you did not have access to dental care?: No Was dental information given to patient?: No HPI 2 month f/u HPI Details 44-year-old female with past medical his tory of asthma, GERD, IBS, depression last seen 11/2024 coming in for follow up. At her last visit, omeprazole was increased to 40 mg at bedtime an upper GI series was ordered. She was also started on a maintenance inhaler for her asthma. Recent sleep study 01/2025 did not reveal sleep apnea. Upper GI series scheduled for 03/2025 Presenting with fatigue and generalized body aches that started on Tuesday of last week. She reports associated nausea when smelling food and headaches, but denies fever, cough, or sore throat. She also mentions having to use her albuterol more this week and sinus congestion. The patient reports that her GERD symptoms have improved with the increased dose of omeprazole to 40 mg, and she is now able to lie on her side at night. A rece nt sleep study was normal and did not show sleep apnea. Recommendations from the study included weight loss and positional therapy to avoid sleeping on her back. She continues to snore. The patient is interested in medication for weight loss. An in-office A1c today was 6.1%, indicating prediabetes. The patient reports increased anxiety and symptoms of depression, which she feels are present daily. She has tried an antidepressant over 20 years ago and is willing to try medication again. 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 1. Little interest or pleasure in doing things: several days 2. Feeling down, depressed, or hopeless: several days 3. Trouble falling or staying asleep, or sleeping too much: several days 4. Feeling tired or having little energy: several days 5. Poor appetite or overeating: several days 6. Feeling bad about yourself - or that you are a failure or have let yourself or your family down: not at all 7. Trouble concentrating on things, such as reading the newspaper or watching television: several days 8. Moving or speaking so slowly that other people could have noticed. Or the opposite - being so fidgety or restless that you have been moving around a lot more than usual: not at all 9. Thoughts that you would be better off or of hurting yourself in some way: not at all Total score: 6 Depression Screening Interpretation: Positive Depression Screening Follow-up: Existing condition and In treatment Depression Screening Done: Yes 02477 - PHQ-9 Billing: Yes Source: Developed by Drs. Ino Barajas, Mayra Cuello, Cyril Kilgore and colleagues, with an educational franklin from [employer]. Thrive Questionnaire Date Thrive assessed: 09/26/24 I am a: Patient What is your living situation today?: I have a steady place to live Within the past 12 months, did the food you bought not last and you didn't have the money to get more?: Never true Within the past 12 months, did you worry whether your food would run out before you got money to buy more?: Sometimes True Do you have trouble paying for medicines?: No Do you have trouble getting transportation to medical appointments?: No Do you have trouble paying your heating and electricity bill?: Yes Do you have trouble taking care of your child, family member or friend?: No Do you have trouble with day-to-day activities such as bathing, preparing meals, shopping, managing finances, etc.?: No Are you currently unemployed and looking for a job?: Yes Are you interested in more education?: No Please select the resources that you would like help with: None Currently or been in a relationship where the following occur: No concerns reported THRIVE Score: 2 AUDIT C Alcohol Use Questionnaire (AUDIT-C) 1. How often do you have a drink containing alcohol?: Monthly or less 2. How many drinks containing alcohol do you have on a typical day when you are drinking?: 1 or 2 3. How often do you have six or more drinks on one occasion?: Never Total Score: 1 DAVID-7 AMB Questionnaire DAVID-7 Date DAVID - 7 assessed: 12/04/24 Feeling nervous, anxious, or on edge: 1 = Several days Not being able to stop or control worryin = Several days Worrying too much about different things: 2 = More than half the days Trouble relaxin = Several days Being so restless that it is hard to sit still: 1 = Several days Becoming easily annoyed or irritable: 1 = Several days Feeling afraid as if something awful might happen: 1 = Several days Total DAVID-7 score (0-4 normal; 5-9 mild; 10-14 moderate; 15-21 severe): 8 Source: Developed by Drs. Ino Barajas, Mayra Cuello, Cyril Kilgore and colleagues, with an educational franklin from [employer]. Review of Systems Const Reports body aches, Denies chills, Denies fever(s), Denies headache(s) and Denies poor appetite Eyes Reports no additional complaints ENT Denies dizziness and Denies headache(s) Card Denies chest pain, Denies syncope, Denies edema, Denies irregular heart rhythm, Denies lightheadedness and Denies dyspnea Resp Denies cough and Denies dyspnea GI Denies abdominal pain, Denies constipation, Denies diarrhea, Reports nausea and Denies vomiting Reports no additional complaints Musc Reports no additional complaints and Denies abnormal gait Skin/Breast Reports system reviewed and no additional complaints, except as documented Neuro Denies abnormal gait, Denies dizziness, Denies syncope and Denies headache(s) Psych Reports no additional complaints Physical exam (Primary Care) Vital Signs: Last Vital Signs Temp 97.3 F 01/28/25 09:46 Pulse 89 01/28/25 09:46 BP 110/70 01/28/25 09:46 Pulse Ox 98 01/28/25 09:46 Oxygen Delivery Method Room Air 01/28/25 09:46 BMI result Body Mass Index 39.4 Tobacco/Smoking Status: Tobacco use Status Tobacco use date assessed 01/28/25 01/28/25 09:48 Patient Tobacco Use Status Never used Tobacco 01/28/25 09:48 e-Cigarette/Vaping Use Never Used 01/28/25 09:48 PHQ-9: PHQ-9 Score PHQ-9: Total score 6 01/28/25 09:48 Depression Screening Interpretation: Positive Depression Screening Follow-up: Existing condition and In treatment Thrive Assessment: Date of Thrive Assessment Date Thrive assessed 09/26/24 01/28/25 09:48 Currently or been in a relationship where the following occur: No concerns reported Const General: cooperative, healthy appearing, comfortable and no acute distress Orientation/consciousness: patient oriented x3 HENMT Head: Yes normocephalic Ears: hearing grossly normal bilaterally General nose exam: Normal external nose present Eyes General: appearance normal, both eyes and all related structures Conjunctivae: conjunctivae normal Neck Neck: Yes full ROM and Yes no lymphadenopathy Resp Effort & Inspection: normal respiratory effort Auscultation: clear to auscultation bilaterally, no crackles, no rales, no rhonchi and no wheezes Cardio Rate: regular rate Rhythm: regular rhythm Skin General skin exam: no rashes or lesions noted Neuro General: patient oriented x3 Gait exam (Neuro): Normal gait present Extrem General: Yes normal to inspection, Yes full ROM and No edema Psych Affect: normal affect Attitude: cooperative Insight: Good insight present (Psych) Judgement: Good judgement present (Psych) Coding Level of Care Code Est Pt Level 4 (47538) Diagnoses Depression F32.A Obesity (BMI 30.0-34.9) E66.811 Gastroesophageal reflux disease, unspecified whether esophagitis present K21.9 Esophagitis presence: esophagitis presence not specified Asthma J45.909 Asthma severity: moderate Asthma persistence: persistent EDDIE (obstructive sleep apnea) G47.33 Prediabetes R73.03 URI (upper respiratory infection) J06.9 Additional Codes PHQ-9 - 61215 - PHQ-9 Billing: Yes ([id number]) Assessment & Plan Assessment & Plan (1) Depression: Comment: [facility] weekly Code(s): F32.A - Depression, unspecified Category: Medical Plan: Patient currently following with [facility] and finds this beneficial. At this time she would like to try a medication for her anxiety and depression as she is finding it more difficult to manage. Plan to trial Wellbutrin 100mg daily for one week than increase to BID as tolerated. Follow up planned for 3 months. (2) Obesity (BMI 30.0-34.9): Code(s): E66.811 - Obesity, class 1 Category: Medical Plan: Healthy diet and regular exercise is encouraged. Patient was counseled today on the risks and benefits of GLP-1 injections as well as the dosing schedule. She has no family history or personal history of thyroid disease and no gallbladder disease. Discussed with the patient the potential GI side effects of this medication. Plan to have repeat blood work after one month of therapy to monitor kidney and liver function before increasing the dose of this medication. Follow up in 3 months for a weight check. (3) GERD (gastroesophageal reflux disease): Code(s): K21.9 - Gastro-esophageal reflux disease without esophagitis Category: Medical Qualifiers: Esophagitis presence: esophagitis presence not specified Qualified Code(s): K21.9 - Gastro-esophageal reflux disease without esophagitis Plan: Avoid trigger foods such as citrus, tomato products, soda, caffeine, spicy foods and other foods that may be irritating to your stomach. Avoid laying flat 3-4 hours after eating and elevate the head of the bed 30 degrees to prevent acid from moving into the esophagus. She has seen an improvement in symptoms since increasing to 40mg at bedtime. Upper GI series planned for March (4) Asthma: Code(s): J45.909 - Unspecified asthma, uncomplicated Category: Medical Qualifiers: Asthma severity: moderate Asthma persistence: persistent Plan: Asthma currently controlled on present medications. Continue on Symbicort, montelukast and albuterol.? Avoid triggers such as allergies. She was recently started on the Symbicort and has seen improvement in her symptoms at this time. (5) EDDIE (obstructive sleep apnea): Comment: no cpap - 2019 no EDDIE Code(s): G47.33 - Obstructive sleep apnea (adult) (pediatric) Category: Medical Plan: Negative sleep study 12/2024. (6) Prediabetes: Code(s): R73.03 - Prediabetes Category: Medical Plan: Decrease the amount of carbohydrates such as pasta, bread, rice, and potatoes and limit the amount of sweets. Although fruits are generally healthy they should be eaten in moderation as they are still high in sugar. A1c in the office today 6.1%. (7) URI (upper respiratory infection): Code(s): J06.9 - Acute upper respiratory infection, unspecified Category: Medical Plan: The patient's symptoms of fatigue, generalized body aches, congestion, and nausea are likely due to a viral illness. She was advised that viral illnesses typically resolve in 7-10 days and that she can use [id number] medications like NyQuil or DayQuil for symptom relief. The patient was instructed to follow up if her symptoms do not improve by the end of the week or if they worsen. Plan Reminded the patient about blood work. This note was constructed using voice recognition software. While every effort has been made to ensure accuracy and news producer, still areas may have been included sometimes these areas may affect the content or meeting of the given symptoms. Total time spent caring for the patient today was 20 minutes. This includes time spent before the visit reviewing the chart, time spent during the visit, and time spent after the visit and documentation. Patient was informed and verbally consented to the use of an ambient scribe for clinic note documentation during this visit. Orders: Referrals Ear/Nose/Throat Referral R06.83 - Snoring Medications: New tirzepatide (weight loss) (Zepbound) for 4 weeks 2.5 mg (0.5 mL) subcut QWEEK 2 mL 0RF E66.811 - Obesity, class 1, K21.9 - Gastro-esophageal reflux disease without esophagitis, R73.03 - Prediabetes bupropion HCl 100 mg PO BID 90 tabs 0RF Discontinued nitrofurantoin macrocrystal must administer with a meal/food Discontinued Reason: Patient no longer taking 100 mg PO BID 5 days 10 caps 0RF phenazopyridine Discontinued Reason: Patient no longer taking 200 mg PO TID 6 tabs 0RF metronidazole Discontinued Reason: Patient no longer taking 500 mg PO BID 14 tabs 0RF clindamycin phosphate 2% Discontinued Reason: Patient no longer taking 1 appful vaginal BEDTIME 7 days 40 grams 0RF
== END 2025-01-28 10:31 | disposition home or self-care (01) ==
LOC: HO.HMCH 09:43
DX: K21.9 Gastro-esophageal reflux disease without esophagitis (principal); F32.A Depression, unspecified; E66.811 Obesity, class 1; Z68.39 Body mass index [BMI] 39.0-39.9, adult; J45.909 Unspecified asthma, uncomplicated; G47.33 Obstructive sleep apnea (adult) (pediatric); R73.03 Prediabetes; J06.9 Acute upper respiratory infection, unspecified

== ENCOUNTER → 2025-01-28 09:42 | Outpatient (BNVA) | payer OTHER, SELFPAY | DX: F32.A Depression, unspecified (principal); E66.811 Obesity, class 1; K21.9 Gastro-esophageal reflux disease without esophagitis; G47.33 Obstructive sleep apnea (adult) (pediatric); R73.03 Prediabetes; J06.9 Acute upper respiratory infection, unspecified; Z68.39 Body mass index [BMI] 39.0-39.9, adult | CPT/HCPCS: 96127; 99212 ==